=== PATIENT | female | born 1985 | race Caucasian/White ===

== ENCOUNTER 2020-01-29 09:03 | Outpatient (CLI) | payer OTHER, SELFPAY ==
--- NOTE | ~2020-01-29 | MM_ITS ---
EXAMINATION: MM screening dre BI w saulo HISTORY: Screening TECHNIQUE: Craniocaudal and mediolateral oblique 3-D tomosynthesis images were obtained and synthetic 2-D images were generated. CAD analysis was submitted and interpreted. COMPARISON: No prior mammogram is available for comparison at this institution. BREAST PARENCHYMAL COMPOSITION: There are scattered areas of fibroglandular density. FINDINGS: There is no evidence of suspicious mass, calcification, or architectural distortion to sugg est malignancy in either breast. There has been no suspicious interval change. IMPRESSION: 1. No mammographic evidence of malignancy. 2. Recommend routine screening mammography in one year. BI-RADS Category 1: Negative Reviewed, dictated and finalized at location A.
== END 2020-01-29 09:04 | disposition home or self-care (01) ==
PROVIDERS: PCP Obstetrics & Gynecology; Visit Provider Obstetrics & Gynecology
DX: Z12.31 Encounter for screening mammogram for malignant neoplasm of breast (principal)
CPT/HCPCS: 77063; 77067

== ENCOUNTER → 2020-05-07 13:43 | Outpatient (CLI) | payer OTHER, SELFPAY ==
--- NOTE | ~2020-05-07 | XR_ITS ---
EXAMINATION: XR ankle LT min 3V DATE: 05/07/2020 14:14 INDICATION: Left ankle injury. TECHNIQUE: 4 views of left ankle were obtained. COMPARISON: None. FINDINGS: Bone alignment is normal. No fracture. There is mild osteoarthritis of intermediate navicul ocuneiform joint. IMPRESSION: 1. No fracture. Reviewed, dictated and finalized at location B. ENT SERVICE ASSOCIATE IMPRESSION: 1. No fracture.
--- NOTE | ~2020-05-07 | XR_ITS ---
EXAMINATION: XR foot LT min 3V DATE: 05/07/2020 14:14 INDICATION: Left foot injury. TECHNIQUE: 4 views of left foot were obtained. COMPARISON: None. FINDINGS: Bone alignment is normal. No fracture. There is mild osteoarthritis of first metatarsophala ngeal joint and some of the interphalangeal joints and midfoot joints. IMPRESSION: 1. Mild polyarticular osteoarthritis. Reviewed, dictated and finalized at location B. OLOGY LABORATORY DIRECTOR
== END ==
PROVIDERS: Visit Provider Family Medicine
DX: S99.912A Unspecified injury of left ankle, initial encounter (principal); M19.072 Primary osteoarthritis, left ankle and foot
CPT/HCPCS: 73610; 73630

== ENCOUNTER 2021-01-04 12:40 | Emergency (ER) | payer OTHER, SELFPAY ==
[2021-01-04] VITALS (12 sets, daily range): BP systolic 108–145; BP diastolic 70–96; PULSE 65–77; RESP 9–19; TEMP 36.8; O2SAT 97–100
--- NOTE | ~2021-01-04 | XR_ITS ---
EXAMINATION: XR chest 2V EXAM DATE: 01/04/2021 13:13 INDICATION: Left-sided chest pain, bilateral arm heaviness. TECHNIQUE: Frontal and lateral projections of the chest obtained and reviewed. There is no prior asael dy for comparison. FINDINGS: The lungs are clear. There are no pleural effusions. The cardiomediastinal silhouette is within normal limits. There is no pneumothorax suspected. The bones and soft tissues are unremarkab le. IMPRESSION: Normal chest x-ray exam. Reviewed, dictated and finalized at location B. IMPRESSION: Normal chest x-ray exam.
--- NOTE | 2021-01-04 12:42 | ECG_ITS ---
Measurements Intervals [place] Rate: 73 P: 55 HI: 124 QRS: 52 QRSD: 81 T: 32 QT: 386 QTc: 426 Interpretive Statements SINUS RHYTHM POSSIBLE LEFT ATRIAL ENLARGEMENT BASELINE ARTIFACT- I, II, III, AVR, AVL BORDERLINE ECG Electronically Signed On 01-04-2021 12:52:32 CDT by Brien Devi D.O.
[2021-01-04 12:57] LABS: Basophils Absolute Auto 0.1 K/mm3 (0.0-0.1); Basophils Percent Auto 0.6 % (0.2-1.2); Eosinophils Absolute Auto 0.2 K/mm3 (0-0.3); Eosinophils Percent Auto 2.6 % (0-4.4); Hematocrit 37.4 % (37.0-47.0); Hemoglobin 12.4 g/dL (12.0-15.0); Immature Granulocyte Absolute 0.03 K/mm3 (0.00-0.031); Immature Granulocyte Percent A 0.4 % (0-0.5); Lymphocytes Absolute Auto 2.26 K/mm3 (0.9-3.2); Lymphocytes Percent Auto 28.9 % (18.3-44.2); Mean Corpuscular HGB Conc 33.2 g/dl (32-36); Mean Corpuscular Hemoglobin 29.7 pg (26-34); Mean Corpuscular Volume 89.5 fl (80-100); Mean Platelet Volume 10.5 fl (7.4-10.4); Monocytes Absolute Auto 0.6 K/mm3 (0.1-0.6); Monocytes Percent Auto 7.4 % (2.6-8.5); Neutrophils Absolute Auto 4.7 K/mm3 (1.3-6.7); Neutrophils Percent Auto 60.1 % (45.5-73.1); Platelet Count Result 270 k/mm3 (150-375); Red Blood Count 4.18 M/mm3 (4.2-5.4); Red Cell Distribution Width 12.8 % (11.5-14.5); White Blood Count 7.8 K/mm3 (4.5-10.0)
[2021-01-04 13:07] LABS: Partial Thromboplastin Time 22.5 SECONDS (22.3-36.8); Prothrombin Time 12.9 Seconds (11.1-14.7)
[2021-01-04 13:30] LABS: Anion Gap 8 mmol/L (8-16); Blood Urea Nitrogen 12 mg/dL (7-17); Calcium 8.7 mg/dL (8.4-10.2); Carbon Dioxide 24 mmol/L (22-30); Chloride 107 mmol/L (98-107); Estimated CRCL calculation 114 ml/min; Estimated Glomerular Filt Rate > 60; Glucose 95 mg/dL (65-110); Potassium 3.8 mmol/L (3.4-5.0); Sodium 139 mmol/L (137-145)
[2021-01-04 13:42] LABS: Troponin I < 0.012 ng/mL (0.000-0.034)
[2021-01-04 15:48] LABS: Troponin I < 0.012 ng/mL (0.000-0.034)
--- NOTE | 2021-01-04 16:27 | ED.GENADULT ---
HPI - General Adult General Chief complaint: Chest Pain Stated complaint: CP/sob/ Arms heavy Time Seen by Provider: 01/04/21 13:48 History of Present Illness HPI narrative: Patient is a 35-year-old female who presents ER with chest discomfort. Ongoing for the last couple weeks. There is pressure in the center of her chest and she will have to do breathing exercises to calm down. Occasionally she will take Xanax for it and will subside. Patient intermittently takes her BuSpar. No increase in stress recently. No known trauma. Denies exertional chest discomfort. Symptoms are occurring during her work call today and she felt she should get checked out. She also felt like today her arms were heavy as before her legs which is not typical of her anxiety. Related Data Home Medications Medication Instructions Recorded Confirmed alprazolam 01/04/21 etonogestrel-ethinyl estradiol vag ring VAGINAL 01/04/21 [NuvaRing] valacyclovir 01/04/21 zolpidem PO 01/04/21 Allergies Allergy/AdvReac Type Severity Reaction Status Date / Time naltrexone Allergy Unknown Unknown Verified 01/04/21 15:10 Review of Systems Review of Systems: All systems reviewed & are unremarkable except as noted in HPI and below Constitutional: Constitutional: Denies chills, Denies fever(s) and Denies weakness ENT: Denies nasal congestion and Denies sore throat Cardiovascular: Cardiovascular: Reports chest pain, Denies rapid heart rate and Denies radiating jaw, neck or arm pain Respiratory: Respiratory: Denies cough and Reports dyspnea Gastrointestinal: Gastrointestinal: Denies abdominal pain, Denies nausea and Denies vomiting Psychiatric: Psychiatric: Reports anxiety and Denies depression PMFSH Past Medical History Medical History (Updated 01/04/21 @ 16:34 by Mundo Hassan MD) Anxiety Surgical History Surgical History (Updated 01/04/21 @ 16:31 by Mundo Hassan MD) History of cholecystectomy History of gastric bypass Family History Family History (Updated 12/12/13 @ 07:13 by DOCTOR UNKNOWN) Mother Hypertension Other Diabetes mellitus Social History Social History Smoking status: Never smoker Alcohol intake: never Exam Narrative: GENERAL: Well-appearing, well-nourished, and in no acute distress. HEAD: Normocephalic, atraumatic. EYES: PERRL and EOMI. CHEST: Clear to auscultation. No respiratory distress. HEART: Regular rate and rhythm. Normal peripheral pulses. ABDOMEN: Soft, nontender, nondistended. EXTREMITIES: Normal range of motion. No edema. SKIN: Warm, dry, no rash. NEURO: Alert and oriented x3. PSYCH: Normal mood and affect. Course Course Emergency Course: Troponins negative x2. TSH pending. Patient will be discharged home in good follow-up with PCP. Vital Signs Vital signs: Vital Signs Temperature 98.3 F 01/04/21 12:47 Pulse Rate 77 01/04/21 12:47 Respiratory Rate 16 01/04/21 12:47 Blood Pressure 129/74 01/04/21 12:47 Pulse Oximetry 98 01/04/21 12:47 Temperature 98.3 F 01/04/21 12:47 Pulse Rate 70 01/04/21 16:32 Respiratory Rate 11 L 01/04/21 16:32 Blood Pressure 108/93 H 01/04/21 16:32 Pulse Oximetry 100 01/04/21 16:32 Medical Decision Making Vital Signs Vital Signs: Vital Signs Temperature 98.3 F 01/04/21 12:47 Pulse Rate 77 01/04/21 12:47 Respiratory Rate 16 01/04/21 12:47 Blood Pressure 129/74 01/04/21 12:47 Pulse Oximetry 98 01/04/21 12:47 Temperature 98.3 F 01/04/21 12:47 Pulse Rate 70 01/04/21 16:32 Respiratory Rate 11 L 01/04/21 16:32 Blood Pressure 108/93 H 01/04/21 16:32 Pulse Oximetry 100 01/04/21 16:32 Lab Data Result diagrams: 01/04/21 12:47 01/04/21 12:46 Labs: Lab Results 01/04/21 01/04/21 01/04/21 Range/Units 12:46 12:46 12:47 WBC 7.8 (4.5-10.0) K/mm3 RBC 4.18 L (4.2-5.4) M/mm3 Hgb 12.4 (12.0-15.0) g/dL Hct 37.4 (37.0
== END 2021-01-04 17:20 | disposition home or self-care (01) ==
PROVIDERS: Emergency Medicine; Emergency Provider Emergency Medicine; PCP Family Medicine
DX: F41.9 Anxiety disorder, unspecified (principal); Z98.84 Bariatric surgery status; R94.31 Abnormal electrocardiogram [ECG] [EKG]
CPT/HCPCS: 36415; 71046; 80048; 84443; 84484; 85025; 85610; 85730; 93005; 99284

== ENCOUNTER 2021-02-02 14:46 | Outpatient (CLI) | payer OTHER, SELFPAY ==
--- NOTE | ~2021-02-02 | MM_ITS ---
EXAMINATION: MM screening dre BI w saulo HISTORY: Screening mammogram TECHNIQUE: Craniocaudal and mediolateral oblique 3-D tomosynthesis images were obtained and synthetic 2-D images were generated. CAD analysis was submitted and interpreted. COMPARISON: 01/29/2020 bilateral digital screening mammogram BREAST PARENCHYMAL COMPOSITION: There are scattered areas of fibroglandular density. FINDINGS: There is no evidence of suspicious mass, calcification, or architectural distortion to sugg est malignancy in either breast. There has been no suspicious interval change. IMPRESSION: 1. No mammographic evidence of malignancy. 2. Recommend routine screening mammography in one year. BI-RADS Category 1: Negative Reviewed, dictated and finalized at location A.
== END 2021-02-02 14:47 | disposition home or self-care (01) ==
LOC: ANHIMG 14:48
PROVIDERS: PCP Family Medicine; Visit Provider Obstetrics & Gynecology
DX: Z12.31 Encounter for screening mammogram for malignant neoplasm of breast (principal)
CPT/HCPCS: 77063; 77067

== ENCOUNTER 2024-05-16 09:22 | Emergency (ER) | payer OTHER, SELFPAY ==
--- NOTE | 2024-05-16 09:26 | ED_ITS ---
HPI - Headache General Stated Complaint: ROSEN w/vision issues right side Time Seen by Provider: 05/16/24 09:23 Source: patient Mode of arrival: ambulatory Limitations: no limitations History of Present Illness HPI Narrative: Patient is a 38-year-old female who presents with right headache radiating down neck since Monday evening. Patient states symptoms are worse at night. Peak symptoms last night causing her to vomit. Patient has tried Tylenol, ibuprofen and did start Sudafed yesterday. Reports symptoms improved slightly but have never completely gone away. Patient has no history of migraines. Patient re ports vision changes only in the right eye where she has black spots and blurred vision that come and go. Denies any numbness, tingling or weakness to extremities or 1 side of the body. States she has increased fluid intake thinking was just dehydration. Patient has not changed caffeine intake. Patient is currently on end of her menstrual cycle. No change in diet, exercise, stress or sleep Related Data Home Medications ?Medication ?Instructions ?Recorded ?Confirmed ?Last Taken ?Type alprazolam 0.5 mg tablet 01/04/21 Unknown History etonogestrel 0.12 mg-ethinyl vag ring vaginal 01/04/21 Unknown History estradiol 0.015 mg/24 hr vaginal ring (NuvaRing) valacyclovir 500 mg tablet 01/04/21 Unknown History zolpidem 12.5 mg tablet,extended PO 01/04/21 Unknown History release,multiphase Allergies Allergy/AdvReac Type Severity Reaction Status Date / Time naltrexone Allergy Unknown Unknown Verified 05/16/24 09:33 Review of Systems Review of Systems: All systems reviewed & are unremarkable except as noted in HPI and below Constitutional: Constitutional: Denies body ache(s), Denies chills, Denies fatigue, Denies fever(s), Reports headache(s), Denies malaise and Denies weakness Eyes: Eyes: Denies blurry vision, Denies irritation and Reports loss of vision ENT: Denies otalgia, Denies headache(s), Denies nasal discharge, Denies sinus pain and Denies sore throat Cardiovascular: Cardiovascular: Denies chest pain, Denies irregular heart rhythm and Denies dyspnea Respiratory: Respiratory: Denies dyspnea Gastrointestinal: Gastrointestinal: Denies abdominal pain, Denies melena, Denies hematochezia, Denies diarrhea, Denies nausea and Denies vomiting Musculoskeletal: Musculoskeletal: Denies back pain, Denies myalgias and Denies arthralgias Integumentary/Breasts: Skin/Breast: Denies pruritus and Denies rash Neurologic: Reports headache(s), Reports loss of vision and Denies weakness Psychiatric: Psychiatric: Reports no additional psychiatric complaints Endocrine: Endocrine: Denies fatigue PMFSH Past Medical History Medical History Anxiety Surgical History Surgical History History of gastric bypass History of cholecystectomy Family History Family History Mother Hypertension Other Diabetes mellitus Social History Social History Smoking status: Never smoker Alcohol intake: never Comments At time of signature, agree with nursing past medical, surgical, social and family history. There is no relevant family history pertinent to the presenting complaint. Exam Const: General: cooperative, healthy appearing, comfortable, no acute distress and well nourished Nutritional Appearance: well nourished Orientation/consciousness: patient oriented x3 Limitations: no limitations HENMT: Head: normal to inspection, normocephalic and atraumatic Ears: hearing grossly normal bilaterally and external ears normal Face/Nose/Sinus: Normal external nose present, normal facial exam and face symmetric Face and sinus: normal facial exam and face symmetric Mouth: Yes lip normal Eyes: General: appearance normal, both eyes and all related structures Alignment and Position: alignment normal and position normal Periorbital: periorbital findings normal Eyelids: eyelids normal Pupils: Equal, round and reactive pupils present EOM: EOMs intact bilaterally Neck: Neck: normal visual inspection, full ROM and supple Chest: Chest palpation & inspection: normal inspection of the chest Resp: Effort & Inspection: normal respiratory effort and able to speak in complete sentences Auscultation: clear to auscultation bilaterally Cardio: Rate: regular rate Rhythm: regular rhythm Heart sounds: S1 normal heart sound present and S2 normal heart sound present GI: Inspection: normal to inspection Skin: General skin exam: normal color and no rashes or lesions noted Neuro: General: patient oriented x3 and moves all extremities Cranial nerves: Yes CN's II-XII intact bilaterally and Yes Equal, round and reactive pupils present Cognition (Neuro): normal cognition Speech: normal speech Gait exam (Neuro): Normal gait present Motor exam (neuro): 5/5 motor strength present throughout, Normal motor muscle tone present throughout and Motor abnormalities not present Sensory Exam: normal sensation Extrem: General: normal to inspection, full ROM and no edema Psych: Appearance: grossly normal and well kempt Mental Status: mental status grossly normal Speech and movement: Normal speech and movement present Affect: normal affect Attitude: cooperative Thought process: Normal thought process present Course Course Emergency Course: Patient being transferred to [facility] for further workup and evaluation. Patient needing further imaging and labs to rule out intracranial abnormality versus migraine. Portions of this record may have been created with voice recognition software Level of Care: Express Care Visit Vital Signs Vital signs: Reviewed Transfer Transfered to: [facility] Transportation: Other (Private auto) Transfer rationale: Headache to right side of head with vision changes to right eye Accepting physician: Krissy CORDERO MDM - Headache MDM Narrative Medical decision making narrative: Patient being transferred to [facility] for further workup and evaluation. Patient needing further imaging and labs to rule out intracranial abnormality versus migraine. Differential Diagnosis Differential diagnosis: Likely migraine, tension headache, subarachnoid hemorrhage, headache and sinusitis Medical Records Attestation: I reviewed the patient's medical records. Discharge Plan Discharge Clinical Impression: Right-sided headache, Changes in vision Patient Disposition: Acute Care Hospital Condition: Stable Patient Language: Iranian Prescriptions: No Action alprazolam 0.5 mg tablet valacyclovir 500 mg tablet etonogestrel-ethinyl estradiol [NuvaRing] 0.12-0.015 mg/24 hr ring VAGINAL zolpidem 12.5 mg tablet,ext release multiphase PO Follow-up/Referrals: PHYSICIAN,DOOR TO DOOR SALESPERSON [Primary Care Provider] - Time of Disposition: 10:02
[2024-05-16 09:35] VITALS: BP 121/80; PULSE 72; RESP 14; TEMP 36.4; O2SAT 100
== END 2024-05-16 09:56 | disposition short-term general hospital (02) ==
PROVIDERS: Emergency Provider Nurse Practitioner Family
DX: R51.9 Headache, unspecified (principal); H53.8 Other visual disturbances
CPT/HCPCS: 99213; G0463

== ENCOUNTER 2024-05-16 10:15 | Emergency (ER) | payer OTHER, SELFPAY ==
--- NOTE | ~2024-05-16 | CT_ITS ---
EXAMINATION: CT brain wo con DATE: 05/16/2024 11:31 INDICATION: Headache. TECHNIQUE: Computed tomography (CT) of the head was performed without intravenous contrast. The mA wa s adjusted according to patient size. Iterative reconstruction technique was employed. The dose-lengt h product was 605.33 mGy-cm. COMPARISON: Brain MRI 03/03/2014 FINDINGS: There is no intracranial hemorrhage, acute infarction, or abnormal intracranial mass lesion . The ventricles are normal in size. The paranasal sinuses are clear. The orbits are normal. The mast oid air cells are normal. IMPRESSION: 1. Normal brain. Reviewed, dictated and finalized at location A. FIC DIVISION COMMANDING OFFICER IMPRESSION: 1. Normal brain.
[2024-05-16 10:21] VITALS: BP 126/74; PULSE 78; RESP 17; TEMP 36.5; O2SAT 100
--- OUTSIDE RECORDS SUMMARY | 2024-05-16 11:09 | XMS_ITS | Clinical Summary ---
Author Organization [facility] [place] Address [address] [place] [address] Care Team Providers Care Enforcement Manager Name Role Phone Park Montalvo MD Primary Care Provider [phone] Allergies No known active allergies Medications NUVARING 0.12-0.015 mg/24 hr Ring 7 Active valACYclovir (VALTREX) 500 mg tablet 9 Active triamcinolone acetonide (KENALOG) 0.1 % CreamIndications: Dermatitis due to plants, including poison angela, sumac, and oak Apply to affected area 2 times daily. 30 Gram 2 Active ALPRAZolam (Xanax) 0.25 mg tabletIndications :Situational anxiety Take 1 Tablet (0.25 mg) by mouth 1 time daily as needed for Anxiety (Use sparingly). 30 Tablet 2 Active albuterol sulfate HFA 90 mcg/actuation aerosol inhalerIndication s:Exercise induced bronchospasm 2 puffs 30 min prior to exercise 6.7 Gram 2 4 Active busPIRone (BUSPAR) 5 mg tablet Take 1 Tablet (5 mg) by mouth daily. 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 Anxiety state 11/30/2018 Psychophysiological insomnia 11/30/2018 Idiopathic urticaria 12/05/2017 Resolved Problems Problem Noted Date Diagnosed Date Resolved Date Dietary iron deficiency without anemia 12/04/2018 12/15/2021 Low TSH level 11/30/2018 12/15/2021 Morbid obesity 09/01/2014 07/29/2020 Encounters Date Type Department Care Team Description 05/09/2024 External Device Data [facility] ABSTRACTION Provider, Abstract from Last 3 Months Immunizations Immunization Administration Dates Next Due (ADACEL/BOOSTRIX)(10 YR UP) TDAP VACCINE, 0.5ML, IM 04/17/2015 (PFIZER)(12 YR UP) COVID-19 VACCINE - EMERGENCY USE AUTHORIZATION, MRNA, [id number](PF) 30 MCG/0.3 ML IM SUSP 02/14/2021,08/11/2020 Family History Medical History Relation Name Comments No Known Problems Daughter 1 No Known Problems Daughter 2 Skin Cancer Father Cataract Maternal Grandfather Diabetes Maternal Grandfather Diabetes Maternal Grandmother Heart Failure Maternal Grandmother Kidney Disease Maternal Grandmother Uterine Cancer Maternal Grandmother Depression Mother Thyroid Disease Mother Other Paternal Grandfather farmers lung Other Paternal Grandmother lung tr ansplant No Known Problems Sister 1 No Known Problems Sister 2 No Known Problems Sister 3 No Known Problems Sister 4 Relation Name Status Comments Daughter 1 Alive Daughter 2 Alive Father Alive Maternal Grandfather Maternal Grandmother Alive Mother Alive Paternal Grandfather Paternal Grandmother Alive Sister 1 Alive Sister 2 Alive Sister 3 Alive Sister 4 Alive Social History Tobacco Use Types Packs/Day Years Used Date Smoking Tobacco: Never Smokeless Tobacco: Never Tobacco Cessation:Counseling Given: No Alcohol Use Standard Drinks/Week Comments Yes 0 (1 standard drink = 0.6 oz pure alcohol) 8 drinks/week, sometimes more if she drinks on the weekend Comments No Sex and Gender Information Value Date Recorded Sex Assigned at Not on file 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 Gender Identity Not on file Sexual Orientation Not on file Last Filed Vital Signs Vital Sign Reading Time Taken Comments Blood Pressure 114/82 12/08/2023 1:02 PM CDT Pulse 71 12/08/2023 1:02 PM CDT Temperature 36.9 ??C (98.5 ??F) 12/08/2023 1:02 PM CD T Respiratory Rate 18 12/08/2023 1:02 PM CDT Oxygen Saturation 98% 12/08/2023 1:02 PM CDT Inhaled Oxygen Concentration - - Weight 120.7 kg (266 lb) 12/08/2023 1:02 PM CDT Height 175.3 cm (5' 9 ) 12/08/2023 1:02 PM CDT Body Mass Index 39.28 12/08/2023 1:02 PM CDT Plan of Treatment Health Maintenance Due Date Last Done Comments Pre-Diabetes and Diabetes Screening 1984 PNEUMOCOCCAL VACCINE 0-64 YEARS (1 of 2 - PCV) 1990 HEPATITIS B VACCINES (1 of 3 - 19+ 3-dose series) 06/18/2003 INFLUENZA VACCINE (#1) 2023 , 01/26/2021 COVID-19 Vaccine ( - 2023-2 5 season) 2023 02/14/2021, 08/11/2020 Preventative Visit- Commercial 04/17/2024 01/05/2023 CERVICAL CANCER SCREENING 06/15/20242021 (Previously completed), 12/16/2017 (Previously completed), 01/15/2017 (Previously completed) DTAP/TDAP/TD VACCINES (2 - T d or Tdap) 04/17/2025 04/17/2015 HPV VACCINES Aged Out No longer eligi ble based on patient's age to complete this topic Insurance * Guarantor: [employer] (C) Account Type Relation to Patient Date of Phone Billing Address Corporate Employer ATTN: JANELLE PAUL [address] [address] [employer]GI[employer] OPEN ACCESS * Guarantor: [employer] Account Type Relation to Patient Date of Phone Billing Address Corporate Employer ATTN: JANELLE PAUL [address] [address] Care Teams Enforcement Manager Relationship Specialty Start Date End Date Park Montalvo MD [address] [place] [id number] PCP - General Internal Medicine 12/08/23
--- OUTSIDE RECORDS SUMMARY | 2024-05-16 11:09 | XMS_ITS | Clinical Summary ---
Author Organization [facility] Address [address] [place] [address] Phone Care Team Providers Care Business Center Manager Name Role Phone Citlali Ang APRN, SED [employer]CHOOL TEACHER Primary Care Provide r Chidi Andrew MD Unavailable Allergies No known active allergies Medications Etonogestrel-Eth inyl Estradiol 0.12-0.015 MG/24HR RING 03/07/2017 Active busPIRone (BUSPAR) 5 MG Tablet Take 10 mg by mouth. 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 Family History Medical History Relation Name Comments No Known Problems Brother Diabetes Maternal Grandfather Diabetes Maternal Grandmother Diabetes Paternal Grandfather Diabetes Paternal Grandmother No Known Problems Sister Relation Name Status Comments Brother Father Alive Maternal Grandfather Maternal Grandmother Alive Mother Alive Paternal Grandfather Paternal Grandmother Sister Social History Tobacco Use Types Packs/Day Years Used Date Smoking Tobacco: Never Smokeless Tobacco: Never Tobacco Cessation:Counseling Given: Not Answered Alcohol Use Standard Drinks/Week Comments Yes 12 (1 standard drink = 0.6 oz pu re alcohol) ocassional Comments No Sex and Gender Information Value Date Recorded Sex Assigned at Not on file Legal Sex Female 10:41 PM CDT Gender Identity Not on file Sexual Orientation Not on file Last Filed Vital Signs Vital Sign Reading Time Taken Comments Blood Pressure 139/82 01/23/2024 9:10 AM CDT Pulse 72 01/23/2024 9:10 AM CDT Temperature 36.7 ??C (98 ??F) 01/23/2024 9:10 AM CDT Respiratory Rate 16 01/23/2024 9:10 AM CDT Oxygen Saturation 99% 01/23/2024 9:10 AM CDT Inhaled Oxygen Concentration - - Weight 121.6 kg (268 lb) 12/27/2023 1:15 PM CDT Height 177.8 cm (5' 10 ) 12/27/2023 1:15 PM CDT Body Mass Index 38.45 12/27/2023 1:15 PM CDT Plan of Treatment Upcoming Encounters Date Type Department Care Team (Late st Contact Info) Description 01/03/2025 8:40 AM CDT [facility] [address] [place] [address] Chidi Andrew MD [address] [place] [address] Discharge Disposition: Discharged to home or Selfcare Health Maintenance Due Date Last Done Comments Hepatitis C Virus (HCV) Screening 1984 Hepatitis B Immunization (1 of 3 - 19+ 3-dose series) 06/18/2003 Pap Smear 2005 Cervical Cancer Screening (CCS) 2014 HPV/Cotest 2014 Influenza Immunization (#1) 2023 1005/2022, 02/14/2022 SARS-COV-2 Immunization ( season) 2023 02/14/2021, 08/11/2020 Respiratory Syncytial Virus (RSV) Immunization (Adult) (1 - 1-dose 75+ series) 06/18/2059 DTaP/Tdap/Td Immunization Discontinued 04/17/2015 TdaP Immunization Completed 04/17/2015 Meningococcal Immunization (ACWY) Aged Out No longer eligible based on patient's age to complete this topic Pneumococcal Immunization Combined Aged Out No longer eligible based on patient's age to complete this topic Rotavirus Immunization Aged Out No lo nger eligible based on patient's age to complete this topic Insurance [address] [place] [address] Care Teams Business Center Manager Relationship Specialty Start Date End Date Citlali Ang, CASH APPLICATION REPRESENTATIVE, [employer]ER PCP - General Advanced Practice Nurse 12/31/18 Chidi Andrew MD [address] [place] [address] Consulting Physician Medical Oncology 11/22/23
--- OUTSIDE RECORDS SUMMARY | 2024-05-16 11:09 | XMS_ITS | Clinical Summary ---
Author Organization [facility] Address [address] [facility] [place] [address] Care Team Providers Care Service Crew Leader Name Role Phone Bruna Lazaro RN Unavailable [phone] None, Physician Primary Care Provider Unavailabl e Source Comments [facility],non-owned Affiliates and Associated Physician Practices is amultiple site organization consisting of ambulatory clinics and hospital sitesin [place], [place], [place] and [place]. This disclosure is being madepursuant to the Care Everywhere program and may not contain all information available regarding this patient. Last updated 18.[facility] Allergies No known active allergies Medications * Be aware that medications may not be up to date on this document. Alwaysverify current medications with the patient. Medication Sig Dispensed Refills Start Date End Date Status norethindrone-ethiny l estradiol (CYCLAFEM 1/35) 1-35 MG-MCG tablet Take 1 (one) tablet by mouth once daily Active busPIRone (Buspar) 5 MG tablet Take 1 (one) tablet by mouth once daily 01/05/2023 Active sucralfate (Carafate) 1 GM/10ML suspension Take 10 mL by mouth 3 times daily 840 mL 02/09/2024 Active phentermine-topirama te 24hr (Qsymia) 3.75-23 MG capsuleIndications:M orbid obesity (HCC) Take 1 (one) capsule by mouth once daily 14 capsule 03/08/2024 Active phentermine-topirama te 24hr (Qsymia) 7.5-46 MG capsuleIndications:M orbid obesity (HCC) Take 1 (one) capsule by mouth once daily 30 capsule 03/11/2024 Active Active Problems Problem Noted Date Diagnosed Date Morbid obesity 09/01/2014 DJD (degenerative joint disease) 09/01/2014 Cholelithiasis 09/01/2014 Encounters Date Type Department Care Team Description 04/05/2024 12:15 PM SCHOOL SECRETARY Clinical Support [facility] Weight Management Services [address] [place] [address], [address] [place] [address] Morbid obesity (HCC) 03/11/2024 Refill [facility] Weight Management Services [address] [place] [address], [address] [place] [address] Yoel Juarez MD MEDICATION REFILL 03/08/2024 1:40 PM SCHOOL SECRETARY Office Visit [facility] Weight Management Services [address] [place] [address], [address] [place] [address] Yoel Juarez MD Morbid obesity (HCC) (Primary Dx) 03/01/2024 9:45 AM SCHOOL SECRETARY Video Visit [facility] Weight Management Services [id number] [place] [address], [address] [place] [address] Morbid obesity (HCC) 02/23/2024 9:00 AM SCHOOL SECRETARY Video Visit [facility] Weight Management Services [address] [facility], [address] [place] [address] Bariatric surgery status from Last 3 Months Social History Tobacco Use Types Packs/Day Years Used Date Smoking Tobacco: Never Alcohol Use Standard Drinks/Week Comments Yes 0 (1 standard drink = 0.6 oz pur e alcohol) occasional Sex and Gender Information Value Date Recorded Sex Assigned at Female 01/15/2024 3:17 PM CDT Gender Identity Not on file Sexual Orientation Not on file Last Filed Vital Signs Vital Sign Reading Time Taken Comments Blood Pressure 130/82 03/08/2024 1:43 PM SCHOOL SECRETARY Pulse 78 03/08/2024 1:43 PM SCHOOL SECRETARY Temperature 36.1 ??C (96.9 ??F) 03/08/2024 1:43 PM CS T Respiratory Rate 21 02/09/2024 9:25 AM CDT Oxygen Saturation 98% 03/08/2024 1:43 PM SCHOOL SECRETARY Inhaled Oxygen Concentration - - Weight 121.9 kg (268 lb 12.8 oz) 2023 12:31 PM SCHOOL SECRETARY Height 171.5 cm (5' 7.5 ) 04/05/2024 12 :31 PM SCHOOL SECRETARY Body Mass Index 41.48 04/05/2024 12:31 PM SCHOOL SECRETARY Plan of Treatment Upcoming Encounters Date Type Department Care Team (Late st Contact Info) Description 05/31/2024 2:40 PM SCHOOL SECRETARY Office Visit [facility] Weight Management Services [address] [facility], [address] [place] [address] [place] [address] [facility] [address] [place] [address] Health Maintenance Due Date Last Done Comments PAP SMEAR 1985 HIV SCREENING 06/18/1999 HEPATITIS C SCREENING 06/13/2002 DTAP/TDAP/TD VACCINES (1 - Tdap) 06/18/2003 HEPATITIS B VACCINE (1 of 3 - 19+ 3-dose series) 06/18/2003 COVID-19 VACCINE ( - 2023-2 5 season) 2023 02/14/2021, 08/11/2020 INFLUENZA VACCINE (#1) 2023 02/14/2022 DEPRESSION SCREENING 04/17/2024 ZOSTER VACCINE (1 of 2) 2034 HIB VACCINE Aged Out No longer eligi ble based on patient's age to complete this topic HPV VACCINE Aged Out No longer eligi ble based on patient's age to complete this topic MENINGOCOCCAL (Group B) VACCINE Aged Out No longer eligible b ased on patient's age to complete this topic MENINGOCOCCAL VACCINE Aged Out No risa ilda eligible based on patient's age to complete this topic PNEUMOCOCCAL VACCINE Aged Out No long er eligible based on patient's age to complete this topic Advance Directives * Full Code (Latest Code Status on File) Date Activated Date Inactivated Comments 02/24/2015 8:31 PM 02/26/2015 12:25 PM Care Teams Service Crew Leader Relationship Specialty Start Date End Date None, Physician [address] [place] [address] PCP - General 02/09/24 Bruna Lazaro, RN Planning Technician 02/24/15
--- OUTSIDE RECORDS SUMMARY | 2024-05-16 11:09 | XMS_ITS | Referral Summary ---
Author Organization [facility] Address [address] [place] [address] Care Team Providers Care Bilingual Sales Consultant Name Role Phone Bruna Lazaro RN Unavailable [phone] None, Physician Primary Care Provider Unavailabl e Source Comments [facility] Affiliates and Associated Physician Practices is amultiple site organization consisting of ambulatory clinics and hospital sitesin [place], [place], [place] and [place]. This disclosure is being madepursuant to the Care Everywhere program and may not contain all information available regarding this patient. Last updated 18.[facility] Encounters Date Type Department Care Team Description 04/05/2024 12:15 PM TOXICOLOGY SUPERVISOR Clinical Support [facility] [address] Weight Management Services [address] [place] [address], [address] [place] [address] Morbid obesity (HCC) 03/11/2024 Refill [facility] [address] Weight Management Services [address] [place] [address], [address] [address] Yoel Juarez MD MEDICATION REFILL 03/08/2024 1:40 PM TOXICOLOGY SUPERVISOR Office Visit [facility] [address] Weight Management Services [address] [place] [address], [facility] [address] [place] [address] Yoel Juarez MD Morbid obesity (HCC) (Primary Dx) 03/01/2024 9:45 AM TOXICOLOGY SUPERVISOR Video Visit [facility] [address] Weight Management Services [address] [place] [address], [address] [address] Morbid obesity (HCC) 02/23/2024 9:00 AM TOXICOLOGY SUPERVISOR Video Visit [facility] Weight Management Services [address], [address] [place] [address] Bariatric surgery status from Last 3 Months Allergies No known active allergies Medications * Be aware that medications may not be up to date on this document. Alwaysverify current medications with the patient. Medication Sig Dispensed Refills Start Date End Date Status norethindrone-ethiny l estradiol (CYCLAFEM ) 1-35 MG-MCG tablet Take 1 (one) tablet [...] DJD (degenerative joint disease) 09/01/2014 Cholelithiasis 09/01/2014 Social History Tobacco Use Types Packs/Day Years [...] Comments Blood Pressure 130/82 03/08/2024 1:43 PM TOXICOLOGY SUPERVISOR Pulse 78 03/08/2024 1:43 PM TOXICOLOGY SUPERVISOR Temperature 36.1 ??C (96.9 ??F) 03/08/2024 1:43 PM CS T Respiratory Rate 21 02/09/2024 9:2 5 AM CDT Oxygen Saturation 98% 03/08/2024 1:43 PM TOXICOLOGY SUPERVISOR Inhaled Oxygen Concentration - - Weight 121.9 kg (268 lb 12.8 oz) 2023 12:31 PM TOXICOLOGY SUPERVISOR Height 171.5 cm (5' 7.5 ) 04/05/2024 12 :31 PM TOXICOLOGY SUPERVISOR Body Mass Index 41.48 04/05/2024 12:31 PM TOXICOLOGY SUPERVISOR Functional Status Functional Status Response Date of Assess ment Is person deaf or have serious hearing difficult y? No 02/24/2015 Is person blind or have serious difficulty seein g? No 02/24/2015 Does person have serious dif ficulty walking/climbing stairs? No 02/24/2015 Does person have difficulty dressing/bathing? No 02/24/2015 Does person have difficulty doing errands alone? No 02/24/2015 Cognitive Status Response Date of Assessm ent Does person have difficulty concentrating/remembering/making decisions? No 02/24/2015 Plan of Treatment Upcoming Encounters Date Type Department Care Team (Late st Contact Info) Description 05/31/2024 2:40 PM TOXICOLOGY SUPERVISOR Office Visit [facility] Weight Management Services [address] [facility], [address] [place] [address] [place] [address] [facility] [address] [place] [address] Advance Directives * Full Code (Latest Code Status on File) Date Activated Date Inactivated Comments 02/24/2015 8:31 PM 02/26/2015 12:25 PM Care Teams Bilingual Sales Consultant Relationship Specialty Start Date End Date None, Physician [address] [place] [address] PCP - General 02/09/24 Bruna Lazaro, RADHA Pipe Fitter Maintenance 02/24/15
--- OUTSIDE RECORDS SUMMARY | 2024-05-16 11:09 | XMS_ITS | Clinical Summary ---
Author Organization [facility] [address] Address [address] [place] [id number] Care Team Providers Care Distiller Name Role Phone Merrill Moyer MD Unavailable [phone] Chidi Andrew MD Unavailable [phone] Allergies No known active allergies Medications albuterol HFA (PROVENTIL HFA,VENTOLIN HFA,PROAIR HFA) 90 mcg/actuation inhaler 2 puffs 30 min prior to exercise 12/07/2020 Active etonogestreL-et hinyl estradioL (NUVARING, ELURYNG) 0.12-0.015 mg/24 hr vaginal ring 03/07/2017 Active valACYclovir (VALTREX) 500 mg tablet 01/06/2019 Active cyanocobalamin (Vitamin B-12) 1,000 mcg sublingual tablet Take 1 tablet (1,000 mcg total) by mouth daily Active busPIRone (BUSPAR) 5 mg tabletIndicatio ns:Generalized Anxiety Disorder Take 1 tablet (5 mg total) by mouth daily as needed (anxiety) 90 tablet 3 01/05/2023 Active ALPRAZolam (XANAX) 0.25 mg tabletIndicatio ns:Panic attack Take 1 tablet (0.25 mg total) by mouth nightly as needed for anxiety 30 tablet 08/22/2023 Active Active Problems Problem Noted Date Diagnosed Date B12 deficiency 01/05/2019 Hyperthyroidism 01/05/2019 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 Anxiety state 11/30/2018 Psychophysiological insomnia 11/30/2018 Idiopathic urticaria 12/05/2017 DJD (degenerative joint disease) 09/01/2014 Morbid obesity 09/01/2014 Resolved Problems Problem Noted Date Diagnosed Date Resolved Date Cholelithiasis 09/01/2014 01/05/2023 Immunizations Name Administration Dates Next Due Influenza, Quadrivalent, Spl it, Preservative Free, Intramuscular 02/14/2022 Tdap 04/17/2015 Surgical History Surgery Date Site/Laterality Comments CHOLECYSTECTOMY N/A GASTRIC BYPASS N/A TONSILLECTOMY Bilateral Medical History Medical History Date Comments Anxiety Cholelithiasis 09/01/2014 Varicella Family History Medical History Relation Name Comments Melanoma Father Diabetes Maternal Grandfather Diabetes Maternal Grandmother Skin cancer Maternal Grandmother Uterine cancer Maternal Grandmother Atrial fibrillation Mother Degenerative Disk Disease Mother Skin cancer Mother Lung disease Paternal Grandfather adrian Diabetes Paternal Grandmother Skin cancer Paternal Grandmother No Known Problems Sister 1 No Known Problems Sister 2 No Known Problems Sister 3 No Known Problems Sister 4 Breast cancer Neg Hx Colon cancer Neg Hx Relation Name Status Comments Father Alive Maternal Grandfather Maternal Grandmother Mother Alive Paternal Grandfather Paternal Grandmother Sister 1 Alive Sister 2 Alive Sister 3 Alive Sister 4 Alive Social History Tobacco Use Types Packs/Day Years Used Date Smoking Tobacco: Never Smokeless Tobacco: Never Tobacco Cessation:Counseling Given: Not Answered PHQ-2 Answer Date Recorded PHQ-2 Total Score (If total score is 3 or more points, staff should administer the PHQ-9) 0 01/05/2023 Comments Unknown Sex and Gender Information Value Date Recorded Sex Assigned at Not on file Legal Sex Female 3:41 AM FISHER SEAL Gender Identity Not on file Sexual Orientation Not on file Occupation Industry Job Start Date Job End Date [employer] Not on file Not on file Not on file Obstetrics History Last Filed Vital Signs Vital Sign Reading Time Taken Comments Blood Pressure 113/76 01/05/2023 12:11 PM CDT Pulse 83 01/05/2023 12:11 PM CDT Temperature 36.7 ??C (98 ??F) 01/05/2023 12:11 PM CDT Respiratory Rate 14 03/15/2022 10:01 AM FISHER SEAL Oxygen Saturation 98% 01/05/2023 12:11 PM CDT Inhaled Oxygen Concentration - - Weight 119.7 kg (264 lb) 01/05/2023 12:11 PM CDT Height 174 cm (5' 8.5 ) 01/05/2023 12:11 PM CDT Body Mass Index 39.55 01/05/2023 12:11 PM CDT Plan of Treatment Health Maintenance Due Date Last Done Comments Hepatitis C Screening 1984 Hepatitis B Screening 2002 Covid-19 Vaccine (3 - 2023-2 5 season) 2023 02/14/2021, 08/11/2020 Influenza Vaccine (#1) 2023 02/14/2022 Depression Screening 01/06/2024 01/05/2023 Regular Well Visit/Exam 18-64 01/06/2024, 01/05/2023 DTaP/Tdap/Td Vaccine (2 - Td or Tdap) 04/17/2025 04/17/2015 Cervical Cancer Screening 04/17/2027 04/17/2022 HPV Vaccines Aged Out No longer eligi ble based on patient's age to complete this topic Pneumococcal vaccine <65 Aged Out No longer eligible based on patient's age to complete this topic Insurance EMPLOYEES [employer] EMPLOYEES [employer] Care Teams Distiller Relationship Specialty Start Date End Date Merrill Moyer MD [address] [address] Referring Physician Obstetrics and Gynecology 01/05/23 Chidi Andrew MD [address] [facility] [address] [place] [address] Referring Physician Hematology and Oncology 01/05/23
--- OUTSIDE RECORDS SUMMARY | 2024-05-16 11:09 | XMS_ITS | Patient Health Summary ---
Author Organization [facility] [employer] Address [address] [place] [address] Care Team Providers Care Junior Underwriter Name Role Phone Bruna Lazaro RN Unavailable [phone] None, Physician Primary Care Provider Unavailabl e Note from [facility],non-owned Affiliates and Associated Physician Practices is amultiple site organization consisting of ambulatory clinics and hospital sitesin [place], [place], [place] and [place]. This disclosure is being madepursuant to the Care Everywhere program and may not contain all information available regarding this patient. Last updated 18.[facility] [employer] Allergies No known active allergies Medications * Be aware that medications may not be up to date on this document. Alwaysverify current medications with the patient. * norethindrone-ethinyl estradiol (CYCLAFEM ) 1-35 MG-MCG tablet Take 1 (one) tablet by mouth once daily * busPIRone (Buspar) 5 MG tablet(Started 01/05/2023) Take 1 (one) tablet by mouth once daily * sucralfate (Carafate) 1 GM/10ML suspension(Started 02/09/2024) Take 10 mL by mouth 3 times daily * phentermine-topiramate 24hr (Qsymia) 3.75-23 MG capsule(Started 03/08/2024) Take 1 (one) capsule by mouth once daily * phentermine-topiramate 24hr (Qsymia) 7.5-46 MG capsule(Started 03/11/2024) Take 1 (one) capsule by mouth once daily Active Problems Problem Noted Date Diagnosed Date [...] Comments Blood Pressure 130/82 03/08/2024 1:43 PM JEWELRY [facility]KER Pulse 78 03/08/2024 1:43 PM JEWELRY [facility] Temperature 36.1 ??C (96.9 ??F) 03/08/2024 1:43 PM CS T Respiratory Rate 21 02/09/2024 9:25 AM CDT Oxygen Saturation 98% 03/08/2024 1:43 PM JEWELRY MAKER Inhaled Oxygen Concentration - - Weight 121.9 kg (268 lb 12.8 oz) 2023 12:31 PM JEWELRY MAKER Height 171.5 cm (5' 7.5 ) 04/05/2024 12 :31 PM JEWELRY MAKER Body Mass Index 41.48 04/05/2024 12:31 PM [facility]EWELRY [facility]K[employer] Procedures * HELICOBACTER PYLORI UREASE (STL)(Performed 02/09/2024) Performed for Diagnosis unknown * HCG URINE QUAL POCT NOTIFICATION(Performed 02/09/2024) Performed for Preop examination * HCG URINE QUALITATIVE - POCT (IP) INTERFACED(Performed 02/09/2024) * [place] ED EGD FLEX TRANSORAL DX(Performed 02/09/2024) * EGD(Performed 02/09/2024) Performed for Bariatric surgery status, Morbid obesity (HCC), Intestinal malabsorption, unspecifiedtype (HCC) * FL UGI SERIES(Performed 02/08/2024) Performed for Bariatric surgery status, Morbid obesity (HCC), Intestinal malabsorption, unspecifiedtype (HCC) * COPPER BLOOD(Performed 01/09/2024) Performed for Intestinal malabsorption, unspecified type (HCC) * ZINC BLOOD(Performed 01/09/2024) Performed for Intestinal malabsorption, unspecified type (HCC) * VITAMIN K1(Performed 01/09/2024) Performed for Intestinal malabsorption, unspecified type (HCC) * VITAMIN E(Performed 01/09/2024) Performed for Intestinal malabsorption, unspecified type (HCC) * VITAMIN D 25-HYDROXY(Performed 01/09/2024) Performed for Intestinal malabsorption, unspecified type (HCC) * PREALBUMIN(Performed 01/09/2024) Performed for Intestinal malabsorption, unspecified type (HCC) * VITAMIN A(Performed 01/09/2024) Performed for Intestinal malabsorption, unspecified type (HCC) * VITAMIN B1(Performed 01/09/2024) Performed for Intestinal malabsorption, unspecified type (HCC) * COMPREHENSIVE METABOLIC PANEL(Performed 01/09/2024) Performed for Intestinal malabsorption, unspecified type (HCC) * LAB RESULTS ORDER(Performed 03/26/2016) * GLUCOSE - POINT OF CARE(Performed 02/26/2015) * GLUCOSE - POINT OF CARE(Performed 02/26/2015) * BASIC METABOLIC PANEL (CALCIUM TOTAL)(Performed 02/26/2015) * CBC W AUTO DIFFERENTIAL(Performed 02/26/2015) * GLUCOSE - POINT OF CARE(Performed 02/25/2015) * GLUCOSE - POINT OF CARE(Performed 02/25/2015) * FL FLUORO UPPER GI TRACT + KUB(Performed 02/25/2015) Performed for H/O gastric bypass * VITAMIN D 25-HYDROXY(Performed 02/25/2015) * BASIC METABOLIC PANEL (CALCIUM TOTAL)(Performed 02/25/2015) * CBC W AUTO DIFFERENTIAL(Performed 02/25/2015) * LAPAROSCOPIC GASTRIC BYPASS(Performed 02/24/2015) Performed for Morbid obesity (HCC) * GLUCOSE - POINT OF CARE(Performed 02/24/2015) * HCG URINE QUALITATIVE - POINT OF CARE(Performed 02/24/2015) * POTASSIUM BLOOD(Performed 02/24/2015) * VITAMIN B12(Performed 02/05/2015) Performed for Preop examination * VITAMIN B1(Performed 02/05/2015) Performed for Preop examination * CBC W AUTO DIFFERENTIAL(Performed 02/05/2015) Performed for Preop examination * COMPREHENSIVE METABOLIC PANEL(Performed 02/05/2015) Performed for Preop examination * EKG 12-LEAD(Performed 02/05/2015) Performed for Preop examination * SLEEP STUDY(Performed 10/15/2014) * LUPUS ANTICOAGULANT PANEL(Performed 03/07/2014) Results * HELICOBACTER PYLORI UREASE (STL) (02/09/2024 9:07 AM CDT) Helicobacter pylori Urease Initial Negative Negative 02/10/2024 10:13 AM CDT [facility] Helicobacter pylori Urease Final Negative Negative 02/10/2024 10:13 AM CDT [facility] Microbiology GASTRIC ANTRAL BIOPSY SPECIMEN / Unknown 02/09/2024 9:07 AM CDT 02/09/2024 4:37 PM CDT Yoel Juarez MD LAB - MICROBIOLOGY O RDERABLES Performing Organization Address City/[facility]/ZIP Co de Phone Number [facility] [address] [place] [address] * HCG URINE QUAL POCT NOTIFICATION (02/09/2024 9:00 AM CDT) Comment Notification Label Only - See Separate Report 02/09/2024 9:00 AM CDT [facility] Urine URINE / Unknown 7:52 AM CDT Emi Harden DO LAB - URINALYSIS ORD ERABLES Performing Organization Address [facility] Co de Phone Number [facility] [address] [place] [address] * HCG URINE QUALITATIVE - POCT (IP) INTERFACED (02/09/2024 8:54 AM CDT) HCG Qual Urine Negative Negative 02/09/2024 9:00 AM CDT [facility] Urine URINE / Unknown 02/09/2024 8 :54 AM CDT 02/09/2024 9:00 AM CDT Yoel Juarez MD LAB - POINT OF CARE ORDERABLES Performing Organization Address [facility] Co de Phone Number [facility] [id number] [place] [address] * EGD (02/09/2024 8:08 AM CDT) Report Endoscopy POC _ Patient Name: Anabella Lopez ?Procedure Date: 02/09/2024 8:08 AM ? Date of : 1985 ? Admit Type: Outpatient Age: 38 ? Gender: Female Attending MD: Yoel Juarez MD, ?? _ Procedure: ? Upper GI endoscopy Indications: ? Heartburn, Assessment following Berenice-en-Y ? gastrojejunostomy Providers: ? Yoel Juarez MD (Doctor) Medicines: ? Propofol per Anesthesia Complications: ? No immediate complications. _ Estimated Blood Loss: ? Estimated blood loss: none. Procedure: ? Pre-Anesthesia Assessment: ? - Prior to the procedure, a History and Physical was ? performed, and patient medications and allergies were ? reviewed. The patient's tolerance of previous ? anesthesia was also reviewed. The risks and benefits ? of the procedure and the sedation options and risks ? were discussed with the patient. All questions were ? answered, and informed consent was obtained. Prior ? Anticoagulants: The patient has taken no anticoagulant ? or antiplatelet agents. ASA Grade Assessment: II - A ? patient with mild systemic disease. After reviewing ? the risks and benefits, the patient was deemed in ? satisfactory condition to undergo the procedure. ? After obtaining informed consent, the endoscope was ? passed under direct vision. Throughout the procedure, ? the patient's blood pressure, pulse, and oxygen ? saturations were monitored continuously. The Endoscope ? was introduced through the mouth, and advanced to the ? jejunum. The upper GI endoscopy was accomplished ? without difficulty. The patient tolerated the ? procedure well. ? Findings: ? The examined esophagus was normal. ? Evidence of a gastric bypass was found. A gastric pouch with a 4.5 cm ? length from the GE junction to the gastrojejunal anastomosis was found ? containing non erosive changes. The staple line appeared intact. The ? gastrojejunal anastomosis was characterized by friable mucosa, ? inflammation, an intact appearance, moderate stenosis and ulceration. ? This was traversed. Biopsies were taken with a cold forceps for ? Helicobacter pylori testing using CLOtest. ? A small type-I sliding hiatal hernia was found. ? The examined jejunum was normal. _ ? Impression: ?- Normal esophagus. ? - Gastric bypass with a pouch 4.5 cm in length and ? intact staple line. Gastrojejunal anastomosis ? characterized by friable mucosa, inflammation, an ? intact appearance, moderate stenosis and ulceration. ? Biopsied. ? - Small type-I sliding hiatal hernia. ? - Normal examined jejunum. Recommendation: ?- Await pathology results. ? - Discharge patient to home. ? - Resume previous diet. ? - Continue present medications. ? Procedure Code(s): ? --- Professional --- ? 73797, Esophagogastroduoden oscopy, flexible, transoral; with biopsy, ? single or multiple ? --- Technical --- ? 78748, Esophagogastroduoden oscopy, flexible, transoral; with biopsy, ? single or multiple Diagnosis Code(s): ? --- Professional --- ? K44.9, Diaphragmatic hernia without obstruction or gangrene ? R12, Heartburn ? Z09, Encounter for follow-up examination after completed treatment for ? conditions other than malignant neoplasm ? Z98.0, Intestinal bypass and anastomosis status ? --- Technical --- ? K44.9, Diaphragmatic hernia without obstruction or gangrene ? R12, Heartburn ? Z09, Encounter for follow-up examination after completed treatment for ? conditions other than malignant neoplasm ? Z98.0, Intestinal bypass and anastomosis status CPT copyright 2020 [employer]. All rights reserved. The codes documented in this report are preliminary and upon professional fee coder review may be revised to meet current compliance requirements. Yoel Juarez MD 02/09/2024 9:10:48 AM Number of Addenda: 0 Note Initiated On: 02/09/2024 8:08 AM [facility] 02/09/2024 8:08 AM CDT Narrative Procedure Note Yoel Juarez MD - 02/09/2024 9:13 AM CDT PLAN: F/u JAMIE bx Carafate for 6 weeks F/u in the office in 4-6 weeks to discuss possible revision of GJ Yoel Juarez MD GI PROCEDURE ORDERAB LES [facility] [place] [address] * FL Ugi Series (02/08/2024 9:12 AM CDT) Anatomical Region Laterality Modality Abdomen Radiographic Rosa ging 02/08/2024 9:26 AM CDT Impressions 02/08/2024 10:22 AM CDT IMPRESSION: 1.Berenice-en-Y bypass without obstruction or extravasation. 2.No inducible hiatal hernia evident during supine esophagography. Edited by Madeleine Almeida on 02/08/2024 9:34 AM > Interpreting Provider: Meliton Dahl MD on 02/08/2024 10:22 AM Narrative 02/08/2024 10:22 AM CDT PROCEDURE: ??FL UGI SERIES DATE/TIME OF EXAM: ??02/08/2024 9:15 AM CLINICAL INFORMATION: None relevant/not provided if blank. Indication: Z98.84: Bariatric surgery status. E66.01: Morbid (severe) obesity due to excess calories (HCC). K90.9: Intestinal malabsorption, unspecified (HCC). Additional History: Weight gain, approximately 10 years post bypass. COMPARISON: February 25, 2015. FINDINGS: Thin barium utilized. The esophagus empties readily into the stomach. With Valsalva, the size of the gastric pouch expands. There is no obstruction or extravasation. No definite ulceration to the Berenice loop. Berenice loop peristalsis is normal. No distention of the excluded stomach. No inducible reflux. FLUOROSCOPY DOSE: ??7.37 mGy Reference air kerma (ka,r). Fluoroscopy time: Procedure Note Meliton Dahl MD - 02/08/2024 PROCEDURE: FL UGI SERIES DATE/TIME OF EXAM: 02/08/2024 9:15 AM CLINICAL INFORMATION: None relevant/not provided if blank. Indication: Z98.84: Bariatric surgery status. E66.01: Morbid (severe) obesity due to excess calories (HCC). K90.9: Intestinal malabsorption, unspecified (HCC). Additional History: Weight gain, approximately 10 years post bypass. COMPARISON: February 25, 2015. FINDINGS: Thin barium utilized. The esophagus empties readily into the stomach. With Valsalva, the sizeof the gastric pouch expands. There is no obstruction or extravasation. No definite ulceration to the Berenice loop. Berenice loop peristalsis is normal.No distention of the excluded stomach. No inducible reflux. FLUOROSCOPY DOSE: 7.37 mGy Reference air kerma (ka,r). Fluoroscopytime: IMPRESSION: 1.Berenice-en-Y bypass without obstruction or extravasation. 2.No inducible hiatal hernia evident during supine esophagography. Edited by Madeleine Almeida on 02/08/2024 9:34 AM > Interpreting Provider: Meliton Dahl MD on 02/08/2024 10:22 AM Yoel Juarez MD FLUOROSCOPY ORDERABL ES * VITAMIN K1 (01/09/2024 8:18 AM CDT) Vitamin K 528 130 - 1500 pg/mL [facility] Comment: This test was developed and its analytical performance characteristics have been determined by [email or web address] [place], [place]. It has not been cleared or approved by the U.S. Food and Drug Administration. This assay has been validated pursuant to the CLIA regulations and is used for clinical purposes. Test Performed at: [facility]/[address] ??[phone] DARIEN MUSE MD,PHD Blood BLOOD SPECIMEN / Unknown 01/09/2024 8:18 AM CDT 01/09/2024 8:19 AM CDT Yoel Juarez MD LAB - CHEMISTRY BISI ANDREW Performing Organization Address [facility] Co de Phone Number [facility] [address] [place] [address] * ZINC BLOOD (01/09/2024 8:18 AM CDT) Zinc 72 60 - 130 mcg/dL [facility] Comment: This test was developed and its analytical performance characteristics have been determined by [email or web address]. It has not been cleared or approved by the FDA. This assay has been validated pursuant to the CLIA regulations and is used for clinical purposes. Test Performed at: [facility] [address] ??[phone] NATACHA THOMPSON Blood BLOOD SPECIMEN / Unknown 01/09/2024 8:18 AM CDT 01/09/2024 8:19 AM CDT Yoel Juarez MD LAB - CHEMISTRY BISI ANDREW Performing Organization Address City/[facility]/ZIP Co de Phone Number [facility] [address] [place] [address] * VITAMIN A (01/09/2024 8:18 AM CDT) Pathologist [facility] Vitamin A 63 38 - 98 mcg/dL [facility] Comment: (Note) Clin Chem Vol. 34.No.8. [id number]. 1998 Vitamin supplementation within 24 hours prior to blood draw may affect the accuracy of results. This test was developed and its analytical performance characteristics have been determined by [email or web address]. It has not been cleared or approved by the FDA. This assay has been validated pursuant to the CLIA regulations and is used for clinical purposes. [facility] [employer] [address] [place] [address] [employer] [address],[address] [place] [address] Loly Radford MD, PhD Test Performed at: [facility] [address] [place] [address] [place] [address] ??[phone] LOLY RADFORD MD,PHD Blood BLOOD SPECIMEN / Unknown 01/09/2024 8:18 AM CDT 01/09/2024 8:19 AM CDT Yoel Juarez MD LAB - CHEMISTRY BISI ANDREW [facility] Organization Address [facility]/ZIP Co de Phone Number [facility] [address] [place] [address] * VITAMIN E (01/09/2024 8:18 AM CDT) [facility] Alpha-Tocopherol 6.7 5.7 - 19.9 mg/L [facility] Comment: Levels of alpha-tocopherol <5 mg/L are consistent with Vitamin E deficiency in adults. Beta-Gamma Tocopherol 1.3 <4.4 mg/L [facility] Comment: (Note) Vitamin supplementation within 24 hours prior to blood draw may affect the accuracy of results. This test was developed and its analytical performance characteristics have been determined by [email or web address]. It has not been cleared or approved by the FDA. This assay has been validated pursuant to the CLIA regulations and is used for clinical purposes. [facility] [employer] [address] [facility] [place] [address],[address] [place] [address] Loly Radford MD, PhD Test Performed at: [facility] [address] [place] [address] [place] ??[phone] LOLY RADFORD MD,PHD Blood BLOOD SPECIMEN / Unknown 01/09/2024 8:18 AM CDT 01/09/2024 8:19 AM CDT Yoel Juarez MD LAB - CHEMISTRY BISI ANDREW Performing Organization Address [facility] Co de Phone Number [facility] [address] [place] [address] * VITAMIN B1 (01/09/2024 8:18 AM CDT) Only the most recent of2 resultswithin the time period is included. Vitamin B1 Whole Blood 95 78 - 185 nmol/L [facility] Comment: (Note) Vitamin supplementation within 24 hours prior to blood draw may affect the accuracy of the results. This test was developed and its analytical performance characteristics have been determined by [email or web address]. It has not been cleared or approved by FDA. This assay has been validated pursuant to the CLIA regulations and is used for clinical purposes. [employer] [address] [place] [address],[address] [facility] [address] Loly Radford MD, PhD Test Performed at: [facility] [address] [place] [address] [place] [address] ??[phone] LOLY RADFORD MD,PHD Blood BLOOD SPECIMEN / Unknown 01/09/2024 8:18 AM CDT 01/09/2024 8:19 AM CDT Yoel Juarez MD LAB - CHEMISTRY BISI ANDREW Performing Organization Address [facility] Co de Phone Number [facility] [address] [place] [address] * (ABNORMAL) COPPER BLOOD (01/09/2024 8:18 AM CDT) Copper 180(H) 70 - 175 mcg/dL [facility] Comment: This test was developed and its analytical performance characteristics have been determined by [email or web address]. It has not been cleared or approved by the FDA. This assay has been validated pursuant to the CLIA regulations and is used for clinical purposes. Test Performed at: [facility] [address] [place], [place] ??[phone] NATACHA THOMPSON Blood BLOOD SPECIMEN / Unknown 01/09/2024 8:18 AM CDT 01/09/2024 8:19 AM CDT Yoel Juarez MD LAB - CHEMISTRY BISI ANDREW Performing Organization Address [facility] Co de Phone Number [facility] [address] [place] [phone] * (ABNORMAL) VITAMIN D 25-HYDROXY (01/09/2024 8:18 AM CDT) Only the most recent of2 resultswithin the time period is included. Pathologist [facility] Vitamin D, 25 Hydroxy 22(L) 30 - 100 ng/mL [facility] Comment: Vitamin D Status ? 25-OH Vitamin D: Deficiency: ?<20 ng/mL Insufficiency: ? 20 - 29 ng/mL Optimal: ? > or = 30 ng/mL For 25-OH Vitamin D testing on patients on D2-supplementation and patients for whom quantitation of D2 and D3 fractions is required, the QuestAssureD(TM) 25-OH VIT D, (D2,D3), LC/MS/MS is recommended: order code 06813 (patients >2yrs). See Note 1 Note 1 For additional information, please refer to http://education.PLUQ.Saberr/faq/AEC233 (This link is being provided for informational/ educational purposes only.) Test Performed at: [facility] [address] [place], [place] ??[phone] LIVAN STAHL MD Blood BLOOD SPECIMEN / Unknown 01/09/2024 8:18 AM CDT 01/09/2024 8:19 AM CDT Yoel Juarez MD LAB - CHEMISTRY BISI ANDREW Performing Organization Address [facility] Co de Phone Number [facility] [address] [place] [address] * COMPREHENSIVE METABOLIC PANEL (01/09/2024 8:18 AM CDT) Only the most recent of2 resultswithin the time period is included. Glucose 79 65 - 99 mg/dL [facility] Comment: ? Fasting reference interval BUN 10 7 - 25 mg/dL [facility] Creatinine 0.61 0.50 - 0.97 mg/dL [facility] eGFR by Cystatin C 117 > OR = 60 mL/min/1. 73m2 [facility] BUN/Creatinine Ratio SEE NOTE: (calc) [facility] Comment: ?? Not Reported: BUN and Creatinine are within ?? reference range. ? Sodium 137 135 - 146 mmol/L [facility] Potassium 3.9 3.5 - 5.3 mmol/L [facility] Chloride 104 98 - 110 mmol/L [facility] CO2 25 20 - 32 mmol/L [facility] Calcium 8.8 8.6 - 10.2 mg/dL [facility] Protein Total 6.1 6.1 - 8.1 g/dL [facility] Albumin 3.9 3.6 - 5.1 g/dL [facility] Globulin Total 2.2 1.9 - 3.7 g/dL (calc) [facility] Albumin/Globulin Ratio 1.8 1.0 - 2.5 (calc) [facility] Bilirubin Total 0.9 0.2 - 1.2 mg/dL [facility] Alkaline Phosphatase 68 31 - 125 U/L [facility] AST 17 10 - 30 U/L [facility] ALT 19 6 - 29 U/L [facility] Comment: Test Performed at: [facility] ??[phone] LIVAN STAHL MD Blood BLOOD SPECIMEN / Unknown 01/09/2024 8:18 AM CDT 01/09/2024 8:19 AM CDT Yoel Juarez MD LAB - CHEMISTRY BISI ANDREW [address] [address] * PREALBUMIN (01/09/2024 8:18 AM CDT) Prealbumin 25 17 - 34 mg/dL [facility] Comment: Test Performed at: [facility] [address] [address] [address] [facility] [place] ??[phone] LIVAN STAHL MD Blood BLOOD SPECIMEN / Unknown 01/09/2024 8:18 AM CDT 01/09/2024 8:19 AM CDT Yoel Juarez MD LAB - CHEMISTRY ORDStephani ANDREW [facility] [address] [place] [address] * LAB RESULTS ORDER (03/26/2016) Nyasia Sandy REINSURANCE CLAIMS ANALYST-BOARD OF EDUCATION SECRETARY LAB - THE RAPEUTIC DRUG MONITORING ORDERABLES * GLUCOSE - POINT OF CARE (02/26/2015 7:26 AM JEWELRY MAKER) Only the most recent of5 resultswithin the time period is included. Pathologist [facility] Glucose WB/POC 86 70 - 106 mg/dL 02/26/2015 8:17 AM JEWELRY MAKER [facility] Blood BLOOD SPECIMEN / Unknown 02/26/2015 7:26 AM JEWELRY MAKER 02/26/2015 8:17 AM J[employer]ELRY [employer]KER Yoel Juarez MD LAB - POINT OF CARE ORDERABLES Performing Organization Address [facility] Co de Phone Number [facility] [address] [place] [address] * (ABNORMAL) CBC W AUTO DIFFERENTIAL (02/26/2015 5:21 AM JEWELRY MAKER) Only the most recent of3 resultswithin the time period is included. WBC 9.0 4.4 - 10.7 x10^9/L 02/26/2015 5:47 AM [facility] WBC Corrected x10^9/L 02/26/2015 5:47 AM [facility] RBC 4.51 3.80 - 5.20 x10^12/L 02/26/2015 5:47 AM [facility] Hemoglobin 13.1 12.0 - 15.6 gm/dL 02/26/2015 5:47 AM [facility] Hematocrit 38.9 35.9 - 45.5 % 02/26/2015 5:47 AM [facility] MCV 86.3 80.7 - 98.3 fl 02/26/2015 5:47 AM [facility] MCH 29.0 26.7 - 34.0 pg 02/26/2015 5:47 AM [facility] MCHC 33.7 30.8 - 35.9 gm/dL 02/26/2015 5:47 AM [facility] Platelet Count 254 153 - 416 x10^9/L 02/26/2015 5:47 AM [facility] RDW-CV 12.3 12.1 - 14.9 % 02/26/2015 5:47 AM [facility] MPV 10.6 9.4 - 12.9 fl 02/26/2015 5:47 AM [facility] Neutrophils % 65.2 44.0 - 73.0 % 02/26/2015 5:47 AM [facility] Lymphocytes % 21.0 20.0 - 43.0 % 02/26/2015 5:47 AM [facility] Monocytes % 7.0 5.0 - 13.0 % 02/26/2015 5:47 AM [facility] Eosinophils % 6.2(H) 0.0 - 6.0 % 02/26/2015 5:47 AM [facility] Basophils % 0.4 0.0 - 2.0 % 02/26/2015 5:47 AM [facility] Immature Granulocytes 0.2 0 - 1 % 02/26/2015 5:47 AM [facility] Neutrophil Absolute 5.89 2.01 - 7.14 x10^9/L 02/26/2015 5:47 AM [facility] Lymphocytes Absolute 1.90 1.07 - 3.94 x10^9/L 02/26/2015 5:47 AM [facility] Monocytes Absolute 0.63 0.26 - 1.07 x10^9/L 02/26/2015 5:47 AM [facility] Eosinophils Absolute 0.56(H) 0 - 0.47 x10^9/L 02/26/2015 5:47 AM [facility] Basophils Absolute 0.04 0 - 0.08 x10^9/L 02/26/2015 5:47 AM [facility] Immature Granulocytes Absolute 0.02 0.00 - 0.06 x10^9/L 02/26/2015 5:47 AM [facility] nRBC Auto 0 /100 WBC 02/26/2015 5:47 AM [facility] Blood BLOOD SPECIMEN / Unknown 02/26/2015 5:21 AM JEWELRY MAKER 02/26/2015 5:31 AM JEWELRY MAKER Yoel Juarez MD LAB - HEMATOLOGY ORD ERABLES Performing Organization Address [facility]/ZIP Co de Phone Number [facility] [address] [place] [address] * BASIC METABOLIC PANEL (CALCIUM TOTAL) (02/26/2015 5:21 AM JEWELRY MAKER) Only the most recent of2 resultswithin the time period is included. Pathologist [facility] [place] Glucose 94 74 - 106 mg/dL 02/26/2015 5:52 AM [facility] Sodium 138 136 - 145 mmol/L 02/26/2015 5:52 AM [facility] Potassium 3.6 3.5 - 5.1 mmol/L 02/26/2015 5:52 AM [facility] Chloride 104 98 - 107 mmol/L 02/26/2015 5:52 AM [facility] CO2 28 22 - 31 mmol/L 02/26/2015 5:52 AM [facility] Calcium 8.5 8.5 - 10.1 mg/dL 02/26/2015 5:52 AM [facility] Anion Gap 6 5 - 20 mmol/L 02/26/2015 5:52 AM [facility] BUN 7 7 - 21 mg/dL 02/26/2015 5:52 AM [facility] Creatinine 0.69 0.50 - 1.30 mg/dL 02/26/2015 5:52 AM [facility] eGFR by MDRD >60 >60 mL/min/1.7 3m2 02/26/2015 5:52 AM [facility] eGFR by MDRD >60 >60 mL/min/1.7 3m2 02/26/2015 5:52 AM [facility] Blood BLOOD SPECIMEN / Unknown 02/26/2015 5:21 AM JEWELRY MAKER 02/26/2015 5:31 AM JEWELRY MAKER Yoel Juarez MD LAB - CHEMISTRY ORDE RABLEONOR Performing Organization Address City/[facility]/ZIP Co de Phone Number [facility] [address] [place] [address] * FL FLUORO UPPER GI TRACT + KUB (02/25/2015 9:43 AM JEWELRY MAKER) Anatomical Region Laterality Modality Abdomen Radiographic Rosa ging 02/25/2015 9:52 AM JEWELRY MAKER Impressions 02/25/2015 9:53 AM JEWELRY MAKER Normal postsurgical appearance status post gastric bypass. There is no evidence of postsurgical leak or obstruction. Narrative 02/25/2015 9:53 AM JEWELRY MAKER Upper GI Study with Water Soluble Contrast Indication: Morbid obesity. Status post gastric bypass. Technique: Seam Press Operator KUB was obtained. Full strength Omnipaque 350 was administered and multiple images of the epigastric region were obtained. Final full abdominal film was obtained following completion of the procedure. 17 seconds fluoroscopy was provided. Findings: Seam Press Operator view demonstrates a benign bowel gas pattern. There no findings suggestive of cher obstruction. Cholecystectomy clips are present in the right upper quadrant. There is a small amount of free intraperitoneal air on dictaphone mechanic film consistent with recent surgery. After administration of oral Omnipaque, the esophagus empties into a small gastric remnant. This, in turn, empties readily into small bowel. Procedure Note Suzy Dumont MD - 02/25/2015 Upper GI Study with Water Soluble Contrast Indication: Morbid obesity. Status post gastric bypass. Technique: Seam Press Operator KUB was obtained. Full strength Omnipaque 350 was administered and multiple images of the epigastric region were obtained. Final full abdominal film was obtained following completion of the procedure. 17 seconds fluoroscopy was provided. Findings: Seam Press Operator view demonstrates a benign bowel gas pattern. There no findings suggestive of cher obstruction. Cholecystectomy clips are present in the right upper quadrant. There is a small amount of free intraperitoneal air on dictaphone mechanic film consistent with recent surgery. After administration of oral Omnipaque, the esophagus empties into a small gastric remnant. This, in turn, empties readily into small bowel. IMPRESSION Normal postsurgical appearance status post gastric bypass. There is no evidence of postsurgical leak or obstruction. Yoel Juarez MD FLUOROSCOPY ORDERABL ES * HCG URINE QUALITATIVE - POINT OF CARE (IP) (02/24/2015 1:26 PM JEWELRY MAKER) HCG Qual Urine Negative Negative [facility] QC Verified Yes Yes [facility] POC T TESTING Urine specimen (specimen) URINE / Unknown 02/24/2015 1:26 PM JEWELRY MAKER Chet Pham MD LAB - POINT OF CARE ORDERABLES Performing Organization Address [facility] Co de Phone Number [facility] [address] [place], [place] [address] [phone] * POTASSIUM BLOOD (02/24/2015 1:19 PM JEWELRY MAKER) Pathologist [facility] [place] Potassium 3.9 3.5 - 5.1 mmol/L 02/24/2015 1:31 PM JEWELRY MAKER [facility] Blood BLOOD SPECIMEN / Unknown 02/24/2015 1:19 PM JEWELRY MAKER 02/24/2015 1:22 PM JEWELRY MAKER Yoel Juarez MD LAB - CHEMISTRY BISI ANDREW Performing Organization Address [facility] Co de Phone Number [facility] [address] [place] [address] * VITAMIN B12 (02/05/2015 2:44 PM CDT) Pathologist [facility] [place] Vitamin B12 301 211 - 911 pg/mL 02/05/2015 3:43 PM CDT [facility] Blood BLOOD SPECIMEN / Unknown 02/05/2015 2:44 PM CDT 02/05/2015 2:51 PM CDT Yoel Juarez MD LAB - CHEMISTRY BISI ANDREW Performing Organization Address [facility] Co de Phone Number [facility] [address] [place] [address] * EKG 12-LEAD (02/05/2015 2:31 PM CDT) Ventricular Rate 70 BPM [facility] Atrial Rate 70 BPM [facility] P-R Interval 136 ms [facility] QRS Duration ms 88 ms [facility] Q-T Interval ms 412 ms [facility] QTC Calculation (Bezet) 444 ms [facility] Calculated P [place] 28 degrees [facility] Calculated R [place] 44 degrees [facility] Calculated T [place] 19 degrees [facility] Interpretation EKG Normal sinus rhythm Normal ECG No previous ECGs available Confirmed by BRANNON DARLING MD ([id number]) on 02/05/2015 5:21:49 PM [facility] 02/05/2015 2:31 PM CDT 02/05/2015 5:21 PM CDT Yoel Juarez MD ECG ORDERABLES [facility] * SLEEP STUDY (10/15/2014) Yoel Juarez MD SLEEP CENTER ORDERAB LES * LUPUS ANTICOAGULANT PANEL CONSULT (PO REF LAB) (03/07/2014) BLOOD SPECIMEN / Unknown Brian Mistry MD LAB - HEMATOLOGY ORD ERABLES [facility] ACCOUNT BILL Care Teams Junior Underwriter Relationship Specialty Start Date End Date None, Physician [address] [place] [address] PCP - General 02/09/24 Bruna Lazaro, RN Disk Grinder 02/24/15
--- OUTSIDE RECORDS SUMMARY | 2024-05-16 11:09 | XMS_ITS | Referral Summary ---
Author Organization [facility] [place] [address] Address [address] [place] [id number] Care Team Providers Care Players Assistant Name Role Phone Merrill Moyer MD Unavailable [phone] Chidi Andrew MD Unavailable [phone] Allergies No known active allergies Medications albuterol [...] it, Preservative Free, Intramuscular 02/14/2022 Tdap 04/17/2015 Social History Tobacco Use Types Packs/Day Years Used Date Smoking Tobacco: Never Smokeless Tobacco: Never Tobacco Cessation:Counseling Given: Not Answered PHQ-2 Answer Date Recorded PHQ-2 Total Score (If total score is 3 or more points, staff should administer the PHQ-9) 0 01/05/2023 Comments Unknown Sex and Gender Information Value Date Recorded Sex Assigned at Not on file Legal Sex Female 3:41 AM RAILROAD SUPERVISOR OF ENGINES Gender Identity Not on file Sexual Orientation Not on file Occupation Industry Job Start Date Job End Date [employer] Not on file Not on file Not on file Last Filed Vital Signs Vital Sign Reading Time Taken Comments Blood Pressure 113/76 01/05/2023 12:11 PM CDT Pulse 83 01/05/2023 12:11 PM CDT Temperature 36.7 ??C (98 ??F) 01/05/2023 12:11 PM CDT Respiratory Rate 14 03/15/2022 10:01 AM RAILROAD SUPERVISOR OF ENGINES Oxygen Saturation 98% 01/05/2023 12:11 PM CDT Inhaled Oxygen Concentration - - Weight 119.7 kg (264 lb) 01/05/2023 12:11 PM CDT Height 174 cm (5' 8.5 ) 01/05/2023 12:11 PM CDT Body Mass Index 39.55 01/05/2023 12:11 PM CDT Plan of Treatment Not on file Insurance [facility] Care Teams Players Assistant Relationship Specialty Start Date End Date Merrill Moyer MD [address] [id number] Referring Physician Obstetrics and Gynecology 01/05/23 Chidi Andrew MD [address] [place] [id number] Referring Physician Hematology and Oncology 01/05/23
--- OUTSIDE RECORDS SUMMARY | 2024-05-16 11:09 | XMS_ITS | Encounter Summary ---
Author Organization [facility] Address [address] [place] [address] Phone Care Team Providers Care Twill Cutter Name Role Phone Ang Citlaliangel Sharpe APRN, BUILD MASTER Primary Care Provide r Chidi Andrew MD Unavailable [phone] Encounter Details Date Type Department Care Team (Late st Contact Info) Description 01/13/2022 Telephone [facility] Oncology Services [address] [place] [address] Jerilyn Valderrama [place] Social History Tobacco Use Types Packs/Day Years Used Date Smoking Tobacco: Never Smokeless Tobacco: Never Alcohol Use Standard Drinks/Week Comments Yes 12 (1 standard drink = 0.6 oz pu re alcohol) ocassional Comments Unknown Sex and Gender Information Value Date Recorded Sex Assigned at Not on file Legal Sex Female 10:41 PM CDT Gender Identity Not on file Sexual Orientation Not on file COVID-19 Exposure Response Date Recorded In the last 10 days, have yo u been in contact with someone who was confirmed or suspected to have Coronavirus/COVID-19? No / Unsure 01/14/2022 12:57 PM CDT documented as of this encounter Miscellaneous Notes * Telephone Encounter - Jerilyn Valderrama - 01/13/2022 11:43 AM CDT LMOM for her to contact office regarding her infusion for tomorrow. It has not been approved thru insurance so will have to cancel her appointment. documented in this encounter Plan of Treatment Upcoming Encounters Date Type Department Care Team (Late st Contact Info) Description 01/03/2025 8:40 AM CDT [facility] [address] [place] [address] Chidi Andrew MD [address] [place] [address] Discharge Disposition: Discharged to home or Selfcare documented as of this encounter Visit Diagnoses Not on filedocumented in this encounter Care Teams Twill Cutter Relationship Specialty Start Date End Date Citlali Ang APRN, SELIN PCP - General Advanced Practice Nurse 12/31/18 Chidi Andrew MD [address] [place] [address] Consulting Physician Medical Oncology 11/22/23 documented as of this encounter
--- NOTE | 2024-05-16 11:21 | ED_ITS ---
HPI - Headache General Chief Complaint: Headache <Krissy Eaton PA-C - Last Filed: 05/17/24 17:06> Stated Complaint: R sided headache, vision problems <Krissy Eaton PA-C - Last Filed: 05/17/24 17:06> Time Seen by Provider: 05/16/24 11:21 <Krissy Eaton PA-C - Last Filed: 05/17/24 17:06> Focused HPI: This is a 38 year old female that presents to the ER for headache. Ongoing over the last several days. Reports worsening headache, nausea, vomiting, vision changes. Taking Ibuprofen and Tylenol with little relief. No history of migraines. No recent injuries or trauma. Denies fevers. GENERAL: Well-appearing, well-nourished, and in no acute distress. HEAD: Normocephalic, atraumatic. CHEST: Clear to auscultation. ?No respiratory distress. HEART: Regular rate and rhythm.? NEURO: ?Alert and oriented x3. Patient screened in triage and initial orders placed.? ?Additional care and disposition to be based upon?diagnostic testing and treatment. <Krissy Eaton PA-C - Last Filed: 05/17/24 17:06> History of Present Illness HPI Narrative: Agree with the above HPI <Ramses Velazco MD - Last Filed: 05/16/24 19:56> Related Data Home Medications: Home Medications ?Medication ?Instructions ?Recorded ?Confirmed ?Last Taken ?Type alprazolam 0.5 mg tablet 0.5 mg PO DAILY 01/04/21 05/16/24 Unknown History etonogestrel 0.12 mg-ethinyl 1 vag ring vaginal MONTHLY 01/04/21 05/16/24 Unknown History estradiol 0.015 mg/24 hr vaginal ring (NuvaRing) valacyclovir 500 mg tablet 500 mg PO DAILY 01/04/21 05/16/24 Unknown History zolpidem 12.5 mg tablet,extended 12.5 mg PO DAILY 01/04/21 05/16/24 Unknown History release,multiphase <Krissy Eaton PA-C - Last Filed: 05/17/24 17:06> Allergies/Adverse Reactions: Allergies Allergy/AdvReac Type Severity Reaction Status Date / Time naltrexone Allergy Unknown Unknown Verified 05/16/24 09:33 <Krissy Eaton PA-C - Last Filed: 05/17/24 17:06> Review of Systems 2 Review of Systems: All systems reviewed & are unremarkable except as noted in HPI and below <Ramses Velazco MD - Last Filed: 05/16/24 19:56> PMFSH Past Medical History Medical History: Medical History Anxiety <Krissy Eaton PA-C - Last Filed: 05/17/24 17:06> Surgical History Surgical History: Surgical History History of gastric bypass History of cholecystectomy <Krissy Eaton PA-C - Last Filed: 05/17/24 17:06> Family History Family History: Family History Mother Hypertension Other Diabetes mellitus <Krissy Eaton PA-C - Last Filed: 05/17/24 17:06> Social History Social History: Social History Smoking status: Never smoker Alcohol intake: never <Krissy Eaton PA-C - Last Filed: 05/17/24 17:06> Exam 2 Narrative: APPEARANCE: Well appearing, no pain, no distress, well-nourished. HEAD: normocephalic, atraumatic. EYES: PERRLA/EOMI, conjunctivae clear. NOSE: Normal no drainage EARS:TMS clear with good light reflex. THROAT: Pharynx clear, no exudate. NECK: Supple. No adenopathy, no masses. RESPIRATORY: Airway patent, respirations nonlabored. Clear to auscultation bilaterally, no rales, rhonchi, wheezing. CARDIOVASCULAR: Regular rate and rhythm without murmurs rubs or gallops. ABDOMINAL: Soft, nontender, nondistended, normal bowel sounds MUSCULOSKELETAL: Moves all extremities. Strength/ROM intact, No edema, No calf tenderness. NEURO: Alert. Cranial nerves II through XII intact. Normal forward and backward tandem gait, negative Romberg SKIN: Warm, dry. Normal Color <Ramses Velazco MD - Last Filed: 05/16/24 19:56> Course Vital Signs Vital signs: Vital Signs Temperature 97.7 F 05/16/24 10:21 Pulse Rate 78 05/16/24 10:21 Respiratory Rate 17 05/16/24 10:21 Blood Pressure 126/74 05/16/24 10:21 Pulse Oximetry 100 05/16/24 10:21 Oxygen Delivery Room Air 05/16/24 10:21 Temperature 97.7 F 05/16/24 10:21 Pulse Rate 98 05/16/24 14:28 Respiratory Rate 16 05/16/24 14:28 Blood Pressure 106/93 H 05/16/24 14:28 Pulse Oximetry 96 05/16/24 14:28 Oxygen Delivery Room Air 05/16/24 10:21 <Krissy Eaton PA-C - Last Filed: 05/17/24 17:06> Vital Signs Temperature 97.7 F 05/16/24 10:21 Pulse Rate 78 05/16/24 10:21 Respiratory Rate 17 05/16/24 10:21 Blood Pressure 126/74 05/16/24 10:21 Pulse Oximetry 100 05/16/24 10:21 Oxygen Delivery Room Air 05/16/24 10:21 Temperature 97.7 F 05/16/24 10:21 Pulse Rate 98 05/16/24 14:28 Respiratory Rate 16 05/16/24 14:28 Blood Pressure 106/93 H 05/16/24 14:28 Pulse Oximetry 96 05/16/24 14:28 Oxygen Delivery Room Air 05/16/24 10:21 <Ramses Velazco MD - Last Filed: 05/16/24 19:56> MDM - Headache MDM Narrative Medical decision making narrative: 38-year-old female presented to the emergency department for evaluation for right-sided headache. Patient was taking ibuprofen at home that did seem to help headache never resolved. Patient was treated with IV Reglan, IV Benadryl p.o. Tylenol and a L of IV fluid after patient had a negative head CT patient was then treated with IV Toradol. On re-evaluation patient states she does feel significantly improved. Patient family were educated on the potential diagnosis migraine versus cluster headache and on the treatment plan for home. Patient was advised to keep a migraine diary. All questions concerns were addressed patient was improved well-appearing at time of discharge. <Ramses Velazco MD - Last Filed: 05/16/24 19:56> Differential Diagnosis Differential diagnosis: Likely migraine, tension headache, subarachnoid hemorrhage, headache, meningitis, sinusitis and postconcussion syndrome <Ramses Velazco MD - Last Filed: 05/16/24 19:56> Lab Data Attestation: I reviewed the patient's lab results. <Ramses Velazco MD - Last Filed: 05/16/24 19:56> Result diagrams: 05/16/24 11:24 05/16/24 11:24 <Krissy Eaton PA-C - Last Filed: 05/17/24 17:06> Labs: Lab Results 05/16/24 Range/Units 11:24 WBC 8.0 (4.5-10.0) K/mm3 RBC 4.59 (4.2-5.4) M/mm3 Hgb 14.1 (12.0-15.0) g/dL Hct 42.0 (37.0-47.0) % MCV 91.5 (80-100) fl MCH 30.7 (26-34) pg MCHC 33.6 (32-36) g/dl RDW 12.7 (11.5-14.5) % Plt Count 265 (150-375) k/mm3 MPV 10.8 H (7.4-10.4) fl Immature Gran % (Auto) 0.2 (0-0.5) % Neut % (Auto) 62.8 (45.5-73.1) % Lymph % (Auto) 26.8 (18.3-44.2) % Cherry % (Auto) 7.1 (2.6-8.5) % Eos % (Auto) 2.2 (0-4.4) % Baso % (Auto) 0.9 (0.2-1.2) % Lymph # (Auto) 2.15 (0.9-3.2) K/mm3 Cherry # (Auto) 0.6 (0.1-0.6) K/mm3 Eos # (Auto) 0.2 (0-0.3) K/mm3 Baso # (Auto) 0.1 (0.0-0.1) K/mm3 Abs Immat Gran (auto) 0.02 (0.00-0.031) K/mm3 Absolute Neuts (auto) 5.0 (1.3-6.7) K/mm3 Absolute Nucleated RBC 0.000 (0.0-0.012) K/mm3 Nucleated RBC % 0.0 (0.0-0.2) % Sodium 140 (137-145) mmol/L Potassium 4.4 (3.4-5.0) mmol/L Chloride 103 (98-107) mmol/L Carbon Dioxide 26 (22-30) mmol/L Anion Gap 11 (4-12) mmol/L BUN 17 (7-17) mg/dL Creatinine 0.72 (0.7-1.0) mg/dL Estim Creat Clear Calc 127 ml/min Estimated GFR > 60 (59 - ) Glucose 84 (65-110) mg/dL Calcium 9.5 (8.4-10.2) mg/dL Total Bilirubin 0.9 (0.2-1.3) mg/dL AST 29 (14-36) U/L ALT 25 (6-35) U/L Alkaline Phosphatase 89 (38-126) U/L Total Protein 7.0 (6.3-8.2) g/dL Albumin 4.2 (3.5-5.1) g/dL <Krissy Eaton PA-C - Last Filed: 05/17/24 17:06> Lab Results 05/16/24 Range/Units 11:24 WBC 8.0 (4.5-10.0) K/mm3 RBC 4.59 (4.2-5.4) M/mm3 Hgb 14.1 (12.0-15.0) g/dL Hct 42.0 (37.0-47.0) % MCV 91.5 (80-100) fl MCH 30.7 (26-34) pg MCHC 33.6 (32-36) g/dl RDW 12.7 (11.5-14.5) % Plt Count 265 (150-375) k/mm3 MPV 10.8 H (7.4-10.4) fl Immature Gran % (Auto) 0.2 (0-0.5) % Neut % (Auto) 62.8 (45.5-73.1) % Lymph % (Auto) 26.8 (18.3-44.2) % Cherry % (Auto) 7.1 (2.6-8.5) % Eos % (Auto) 2.2 (0-4.4) % Baso % (Auto) 0.9 (0.2-1.2) % Lymph # (Auto) 2.15 (0.9-3.2) K/mm3 Cherry # (Auto) 0.6 (0.1-0.6) K/mm3 Eos # (Auto) 0.2 (0-0.3) K/mm3 Baso # (Auto) 0.1 (0.0-0.1) K/mm3 Abs Immat Gran (auto) 0.02 (0.00-0.031) K/mm3 Absolute Neuts (auto) 5.0 (1.3-6.7) K/mm3 Absolute Nucleated RBC 0.000 (0.0-0.012) K/mm3 Nucleated RBC % 0.0 (0.0-0.2) % Sodium 140 (137-145) mmol/L Potassium 4.4 (3.4-5.0) mmol/L Chloride 103 (98-107) mmol/L Carbon Dioxide 26 (22-30) mmol/L Anion Gap 11 (4-12) mmol/L BUN 17 (7-17) mg/dL Creatinine 0.72 (0.7-1.0) mg/dL Estim Creat Clear Calc 127 ml/min Estimated GFR > 60 (59 - ) Glucose 84 (65-110) mg/dL Calcium 9.5 (8.4-10.2) mg/dL Total Bilirubin 0.9 (0.2-1.3) mg/dL AST 29 (14-36) U/L ALT 25 (6-35) U/L Alkaline Phosphatase 89 (38-126) U/L Total Protein 7.0 (6.3-8.2) g/dL Albumin 4.2 (3.5-5.1) g/dL <Ramses Velazco MD - Last Filed: 05/16/24 19:56> Imaging Data Radiologist's impression: Impressions Head CT 05/16/24 11:36 IMPRESSION: 1. Normal brain. <Ramses Velazco MD - Last Filed: 05/16/24 19:56> Critical Care Time Critical Care Time Critical Care Time: No <Krissy Eaton PA-C - Last Filed: 05/17/24 17:06> Discharge Plan Discharge Clinical Impression: Right-sided headache Migraine Qualifiers: Migraine type: unspecified Status migrainosus presence: without status migrainosus Intractability: not intractable Qualified Code(s): G43.909 - Migraine, unspecified, not intractable, without status migrainosus <Krissy Eaton PA-C - Last Filed: 05/17/24 17:06> Patient Disposition: Home, Self-Care <Krissy Eaton PA-C - Last Filed: 05/17/24 17:06> Condition: Stable <KRISTI Kaiser Last Filed: 05/17/24 17:06> Instructions: Antibiotic Form, Migraine Headache (ED) <Krissy Eaton PA-C - Last Filed: 05/17/24 17:06> Additional Instructions: Drink plenty of fluids, keep a migraine diary. Have close follow-up with your primary care physician. If you have any worsening symptoms please call or return to the emergency department. <Krissy Eaton PA-C - Last Filed: 05/17/24 17:06> Patient Language: [place] <Krissy Eaton PA-C - Last Filed: 05/17/24 17:06> Prescriptions: No Action alprazolam 0.5 mg tablet 0.5 mg PO DAILY valacyclovir 500 mg tablet 500 mg PO DAILY etonogestrel-ethinyl estradiol [NuvaRing] 0.12-0.015 mg/24 hr ring 1 vag ring VAGINAL MONTHLY zolpidem 12.5 mg tablet,ext release multiphase 12.5 mg PO DAILY <Krissy Eaton PA-C - Last Filed: 05/17/24 17:06> Follow-up/Referrals: PHYSICIAN,RECORDS MANAGEMENT MANAGER [Non-Staff] - <Krissy Eaton PA-C - Last Filed: 05/17/24 17:06>
[2024-05-16 11:42] LABS: Basophils Absolute Auto 0.1 K/mm3 (0.0-0.1); Basophils Percent Auto 0.9 % (0.2-1.2); Eosinophils Absolute Auto 0.2 K/mm3 (0-0.3); Eosinophils Percent Auto 2.2 % (0-4.4); Hemoglobin 14.1 g/dL (12.0-15.0); Immature Granulocyte Absolute 0.02 K/mm3 (0.00-0.031); Immature Granulocyte Percent A 0.2 % (0-0.5); Lymphocytes Absolute Auto 2.15 K/mm3 (0.9-3.2); Lymphocytes Percent Auto 26.8 % (18.3-44.2); Mean Corpuscular HGB Conc 33.6 g/dl (32-36); Mean Corpuscular Hemoglobin 30.7 pg (26-34); Mean Corpuscular Volume 91.5 fl (80-100); Mean Platelet Volume 10.8 fl (7.4-10.4); Monocytes Absolute Auto 0.6 K/mm3 (0.1-0.6); Monocytes Percent Auto 7.1 % (2.6-8.5); Neutrophils Percent Auto 62.8 % (45.5-73.1); Platelet Count Result 265 k/mm3 (150-375); Red Blood Count 4.59 M/mm3 (4.2-5.4); Red Cell Distribution Width 12.7 % (11.5-14.5)
[2024-05-16 11:44] LABS: Alanine Aminotransferase 25 U/L (6-35); Albumin Level 4.2 g/dL (3.5-5.1); Alkaline Phosphatase 89 U/L (38-126); Anion Gap 11 mmol/L (4-12); Aspartate Amino Transferase 29 U/L (14-36); Bilirubin,Total 0.9 mg/dL (0.2-1.3); Blood Urea Nitrogen 17 mg/dL (7-17); Calcium 9.5 mg/dL (8.4-10.2); Carbon Dioxide 26 mmol/L (22-30); Chloride 103 mmol/L (98-107); Estimated CRCL calculation 127 ml/min; Estimated Glomerular Filt Rate > 60; Glucose 84 mg/dL (65-110); Potassium 4.4 mmol/L (3.4-5.0); Sodium 140 mmol/L (137-145)
[2024-05-16] MEDS: ACETAMINOPHEN 500 MG TABLET 1000 MG PO (12:31)
[2024-05-16] MEDS: METOCLOPRAMIDE HCL INJ 10 MG/2 ML VIAL IV PUSH (12:32)
[2024-05-16] MEDS: diphenhydrAMINE HCl INJ 50 MG/ML VIAL 25 MG IV PUSH (12:32)
[2024-05-16] MEDS: SODIUM CHLORIDE 0.9% IV 1,000 ML 999 ML IV CONT (12:35)
[2024-05-16 12:36] VITALS: BP 117/71; PULSE 68; RESP 16; O2SAT 100
--- OUTSIDE RECORDS SUMMARY | 2024-05-16 12:53 | XMS_ITS | Clinical Summary ---
Author Organization [facility] Address [address] [facility] [place] [address] Care Team Providers Care Lawn Service Supervisor Name Role Phone Bruna Lazaro RN Unavailable [phone] None, Physician Primary Care Provider Unavailabl e Source Comments [facility],non-owned Affiliates and Associated Physician Practices is amultiple site organization consisting of ambulatory clinics and hospital sitesin [place], [place], [place] and [place]. This disclosure is being madepursuant to the Care Everywhere program and may not contain all information available regarding this patient. Last updated 18.[facility] Allergies No known active allergies Medications * [...] Department Care Team Description 04/05/2024 12:15 PM AB[employer] LIAISON OFFICER Clinical Support [facility] Health Weight Management Services [address] [place] [address], [address] [place] [address] Morbid obesity (HCC) 03/11/2024 Refill [facility] Weight Management Services [address] [place] [address], [address] [place] [address] Yoel Juarez MD MEDICATION REFILL 03/08/2024 1:40 PM [employer] LIAISON OFFICER Office Visit [facility] Weight Management Services [address] [place] [address], [address] [place] [address] Yoel Juarez MD Morbid obesity (HCC) (Primary Dx) 03/01/2024 9:45 AM [employer] LIAISON OFFICER Video Visit [facility] Management Services [id number] [place] [address], [address] [place] [address] Morbid obesity (HCC) 02/23/2024 9:00 AM [employer] LIAISON OFFICER Video Visit [facility] Health Weight Management Services [address] [facility], [address] [place] [address] Bariatric surgery status from Last [...] Comments Blood Pressure 130/82 03/08/2024 1:43 PM [employer] LIAISON OFFICER Pulse 78 03/08/2024 1:43 PM [employer] LIAISON OFFICER Temperature 36.1 ??C (96.9 ??F) 03/08/2024 1:43 PM CS T Respiratory Rate 21 02/09/2024 9:25 AM CDT Oxygen Saturation 98% 03/08/2024 1:43 PM [employer]IA[employer] OFFICER Inhaled Oxygen Concentration - - Weight 121.9 kg (268 lb 12.8 oz) 2023 12:31 PM [employer] LIAISON OFFICER Height 171.5 cm (5' 7.5 ) 04/05/2024 12 :31 PM [employer] LIAISON OFFICER Body Mass Index 41.48 04/05/2024 12:31 PM [employer] LIAISON OFFICER Plan of Treatment Upcoming Encounters Date Type Department Care Team (Late st Contact Info) Description 05/31/2024 2:40 PM [employer] LIAISON OFFICER Office Visit [facility] Weight Management Services [address] [facility], [address] [place] [address] [place] [address] [facility] [address] [place] [address] Health Maintenance Due Date Last [...] 8:31 PM 02/26/2015 12:25 PM Care Teams Lawn Service Supervisor Relationship Specialty Start Date End Date None, Physician [address] [place] [address] PCP - General 02/09/24 Bruna Lazaro, RN Manager Validation 02/24/15
--- OUTSIDE RECORDS SUMMARY | 2024-05-16 12:53 | XMS_ITS | Referral Summary ---
Author Organization [facility] [address] Address [address] [place] [address] Care Team Providers Care Casting Director Name Role Phone Merrill Moyer MD Unavailable [phone] Chidi Andrew MD Unavailable [phone] Allergies No known active allergies Medications albuterol [...] on file Legal Sex Female 3:41 AM LOGISTICS PLANNING MANAGER Gender Identity Not on file Sexual Orientation Not on file Occupation Industry Job Start Date Job End Date [employer] Not on file Not on file Not on file Last Filed Vital Signs Vital Sign Reading Time Taken Comments Blood Pressure 113/76 01/05/2023 12:11 PM CDT Pulse 83 01/05/2023 12:11 PM CDT Temperature 36.7 ??C (98 ??F) 01/05/2023 12:11 PM CDT Respiratory Rate 14 03/15/2022 10:01 AM LOGISTICS PLANNING MANAGER Oxygen Saturation 98% 01/05/2023 12:11 PM CDT Inhaled Oxygen Concentration - - Weight 119.7 kg (264 lb) 01/05/2023 12:11 PM CDT Height 174 cm (5' 8.5 ) 01/05/2023 12:11 PM CDT Body Mass Index 39.55 01/05/2023 12:11 PM CDT Plan of Treatment Not on file Insurance [employer] Care Teams Casting Director Relationship Specialty Start Date End Date Merrill Moyer MD [address] [id number] Referring Physician Obstetrics and Gynecology 01/05/23 Chidi Andrew MD [address] [place] [address] Referring Physician Hematology and Oncology 01/05/23
--- OUTSIDE RECORDS SUMMARY | 2024-05-16 12:53 | XMS_ITS | Clinical Summary ---
Author Organization [facility] [employer] [place] Address [address] [facility] [place] [address] Care Team Providers Care Channel Rougher Name Role Phone Park Montalvo MD Primary Care Provider [phone] Allergies No known active allergies Medications NUVARING [...] COVID-19 VACCINE - EMERGENCY USE AUTHORIZATION, MRNA, [id number](PF) 30 MCG/0.3 ML IM SUSP 02/14/2021,08/11/2020 Family [...] on file Legal Sex Female 9:24 AM UTILITY TRACTOR OPERATOR Gender Identity Not on file Sexual [...] to complete this topic Insurance * Guarantor: [employer]RU K (C) Account Type Relation to Patient Date of Phone Billing Address Corporate Employer ATTN: JANELLE PAUL [address] [address] [employer] OPEN ACCESS * Guarantor: [employer] Account Type Relation to Patient Date of Phone Billing Address Corporate Employer ATTN: JANELLE PAUL [address] [address] Care Teams Channel Rougher Relationship Specialty Start Date End Date Park Montalvo MD [address] [place] [phone] PCP - General Internal Medicine 12/08/23
--- OUTSIDE RECORDS SUMMARY | 2024-05-16 12:53 | XMS_ITS | Patient Health Summary ---
Author Organization [facility] [employer] Address [address] [place] [address] Care Team Providers Care Temporary Staff Accountant Name Role Phone Bruna Lazaro RN Unavailable [phone] None, Physician Primary Care Provider Unavailabl e Note from [facility],non-owned Affiliates and Associated Physician Practices is amultiple site organization consisting of ambulatory clinics and hospital sitesin [place], [place], [place] and [place]. This disclosure is being madepursuant to the Care Everywhere program and may not contain all information available regarding this patient. Last updated 18.[facility] [employer] Allergies No known active allergies Medications * [...] Comments Blood Pressure 130/82 03/08/2024 1:43 PM YOUTH ASSOCIATE Pulse 78 03/08/2024 1:43 PM YOUTH ASSOCIATE Temperature 36.1 ??C (96.9 ??F) 03/08/2024 1:43 PM CS T Respiratory Rate 21 02/09/2024 9:25 AM CDT Oxygen Saturation 98% 03/08/2024 1:43 PM YOUTH ASSOCIATE Inhaled Oxygen Concentration - - Weight 121.9 kg (268 lb 12.8 oz) 2023 12:31 PM YOUTH ASSOCIATE Height 171.5 cm (5' 7.5 ) 04/05/2024 12 :31 PM YOUTH ASSOCIATE Body Mass Index 41.48 04/05/2024 12:31 PM YOUTH ASSOCIATE Procedures * HELICOBACTER PYLORI UREASE (STL)(Performed 02/09/2024) Performed for Diagnosis unknown * HCG URINE QUAL POCT NOTIFICATION(Performed 02/09/2024) Performed for Preop examination * HCG URINE QUALITATIVE - POCT (IP) INTERFACED(Performed 02/09/2024) * [place] ED EGD FLEX TRANSORAL DX(Performed 02/09/2024) * [...] Initial Negative Negative 02/10/2024 10:13 AM CDT [facility] Helicobacter pylori Urease Final Negative Negative 02/10/2024 10:13 AM CDT [facility] Microbiology GASTRIC ANTRAL BIOPSY SPECIMEN / Unknown 02/09/2024 9:07 AM CDT 02/09/2024 4:37 PM CDT Yoel Juarez MD LAB - MICROBIOLOGY O RDERABLES Performing Organization Address City/[facility]/ZIP Co de Phone Number [facility] [address] [place] [address] * HCG URINE QUAL POCT NOTIFICATION (02/09/2024 9:00 AM CDT) Comment Notification Label Only - See Separate Report 02/09/2024 9:00 AM CDT [facility] Urine URINE / Unknown 7:52 AM CDT Emi Harden DO LAB - URINALYSIS ORD ERABLES Performing Organization Address [facility] Co de Phone Number [facility] [address] [place] [address] * HCG URINE QUALITATIVE - POCT (IP) INTERFACED (02/09/2024 8:54 AM CDT) HCG Qual Urine Negative Negative 02/09/2024 9:00 AM CDT [facility] Urine URINE / Unknown 02/09/2024 8 :54 AM CDT 02/09/2024 9:00 AM CDT Yoel Juarez MD LAB - POINT OF CARE ORDERABLES Performing Organization Address [facility] Co de Phone Number [facility] [id number] [place] [address] * EGD (02/09/2024 8:08 AM CDT) [...] Procedure Code(s): ? --- Professional --- ? 79314, Esophagogastroduoden oscopy, flexible, transoral; with biopsy, ? single or multiple ? --- Technical --- ? 82849, Esophagogastroduoden oscopy, flexible, transoral; with biopsy, ? [...] bypass and anastomosis status CPT copyright 2020 [employer]. All rights reserved. The codes documented in this report are preliminary and upon kapok and cotton machine operator review may be revised to meet current compliance requirements. Yoel Juarez MD 02/09/2024 9:10:48 AM Number of Addenda: 0 Note Initiated On: 02/09/2024 8:08 AM [facility] 02/09/2024 8:08 AM CDT Narrative Procedure Note Yoel Juarez MD - 02/09/2024 9:13 AM CDT PLAN: F/u JAMIE bx Carafate for 6 weeks F/u in the office in 4-6 weeks to discuss possible revision of GJ Yoel Juarez MD GI PROCEDURE ORDERAB LES [facility] [place] [address] * FL Ugi Series (02/08/2024 9:12 AM [...] analytical performance characteristics have been determined by [facility] [place], [place]. It has not been cleared or approved by the U.S. Food and Drug Administration. This assay has been validated pursuant to the CLIA regulations and is used for clinical purposes. Test Performed at: [facility]/[address] ??[phone] DARIEN MUSE MD,PHD Blood BLOOD SPECIMEN / Unknown 01/09/2024 8:18 AM CDT 01/09/2024 8:19 AM CDT Yoel Juarez MD LAB - CHEMISTRY BISI ANDREW Performing Organization Address [facility] Co de Phone Number [facility] [address] [place] [address] * ZINC BLOOD (01/09/2024 8:18 AM CDT) Zinc 72 60 - 130 mcg/dL [facility] Comment: This test was developed and its analytical performance characteristics have been determined by [facility]. It has not been cleared or approved by the FDA. This assay has been validated pursuant to the CLIA regulations and is used for clinical purposes. Test Performed at: [facility] [address] ??[phone] NATACHA THOMPSON Blood BLOOD SPECIMEN / Unknown 01/09/2024 8:18 AM CDT 01/09/2024 8:19 AM CDT Yoel Juarez MD LAB - CHEMISTRY BISI ANDREW Performing Organization Address City/[facility]/ZIP Co de Phone Number [facility] [address] [place] [address] * VITAMIN A (01/09/2024 8:18 AM CDT) Pathologist [facility] Vitamin A 63 38 - 98 mcg/dL [facility] Comment: (Note) Clin Chem Vol. 34.No.8. [id number]. 1998 Vitamin supplementation within 24 hours prior to blood draw may affect the accuracy of results. This test was developed and its analytical performance characteristics have been determined by [facility]. It has not been cleared or approved by the FDA. This assay has been validated pursuant to the CLIA regulations and is used for clinical purposes. [facility] [address] [place] [address] [employer] [address],[address] [place] [address] Loly Radford MD, PhD Test Performed at: [facility] [address] [place] [address] [place] [address] ??[phone] LOLY RADFORD MD,PHD Blood BLOOD SPECIMEN / Unknown 01/09/2024 8:18 AM CDT 01/09/2024 8:19 AM CDT Yoel Juarez MD LAB - CHEMISTRY BISI ANDREW [facility] Organization Address [facility]/ZIP Co de Phone Number [facility] [address] [place] [address] * VITAMIN E (01/09/2024 8:18 AM CDT) [facility] Alpha-Tocopherol 6.7 5.7 - 19.9 mg/L [facility] Comment: Levels of alpha-tocopherol <5 mg/L are consistent with Vitamin E deficiency in adults. Beta-Gamma Tocopherol 1.3 <4.4 mg/L [facility] Comment: (Note) Vitamin supplementation within 24 hours prior to blood draw may affect the accuracy of results. This test was developed and its analytical performance characteristics have been determined by [facility]. It has not been cleared or approved by the FDA. This assay has been validated pursuant to the CLIA regulations and is used for clinical purposes. [facility] [address] [facility] [employer] [address],[address] [place] [address] Loly Radford MD, PhD Test Performed at: [facility] [address] [place] [address] [place] ??[phone] LOLY RADFORD MD,PHD Blood BLOOD SPECIMEN / Unknown 01/09/2024 8:18 AM CDT 01/09/2024 8:19 AM CDT Yoel Juarez MD LAB - CHEMISTRY BISI ANDREW Performing Organization Address [facility] Co de Phone Number [facility] [address] [place] [address] * VITAMIN B1 (01/09/2024 8:18 AM CDT) Only the most recent of2 resultswithin the time period is included. Vitamin B1 Whole Blood 95 78 - 185 nmol/L [facility] Comment: (Note) Vitamin supplementation within 24 hours prior to blood draw may affect the accuracy of the results. This test was developed and its analytical performance characteristics have been determined by [facility]. It has not been cleared or approved by FDA. This assay has been validated pursuant to the CLIA regulations and is used for clinical purposes. [facility] [address] [place] [address],[address] [facility] [address] Loly Radford MD, PhD Test Performed at: [facility] [address] [place] [address] [place] [address] ??[phone] LOLY RADFORD MD,PHD Blood BLOOD SPECIMEN / Unknown 01/09/2024 8:18 AM CDT 01/09/2024 8:19 AM CDT Yoel Juarez MD LAB - CHEMISTRY BISI ANDREW Performing Organization Address [facility] Co de Phone Number [facility] [address] [place] [address] * (ABNORMAL) COPPER BLOOD (01/09/2024 8:18 AM CDT) Copper 180(H) 70 - 175 mcg/dL [facility] Comment: This test was developed and its analytical performance characteristics have been determined by [facility]. It has not been cleared or approved by the FDA. This assay has been validated pursuant to the CLIA regulations and is used for clinical purposes. Test Performed at: [facility] [address] [place], [place] ??[phone] NATACHA THOMPSON Blood BLOOD SPECIMEN / Unknown 01/09/2024 8:18 AM CDT 01/09/2024 8:19 AM CDT Yoel Juarez MD LAB - CHEMISTRY BISI ANDREW Performing Organization Address [facility] Co de Phone Number [facility] [address] [place] [phone] * (ABNORMAL) VITAMIN D 25-HYDROXY (01/09/2024 8:18 [...] D, (D2,D3), LC/MS/MS is recommended: order code [id number] (patients >2yrs). See Note 1 Note 1 For additional information, please refer to http://education.Shift Network.Venuefox/faq/KVJ061 (This link is being provided for informational/ educational purposes only.) Test Performed at: [facility] [address] [place], [place] ??[phone] LIVAN STAHL MD Blood BLOOD SPECIMEN / Unknown 01/09/2024 8:18 AM CDT 01/09/2024 8:19 AM CDT Yoel Juarez MD LAB - CHEMISTRY BISI ANDREW Performing Organization Address [facility] Co de Phone Number [facility] [address] [place] [address] * COMPREHENSIVE METABOLIC PANEL (01/09/2024 8:18 AM [...] 29 U/L [facility] Comment: Test Performed at: [facility] ??[phone] LIVAN STAHL MD Blood BLOOD SPECIMEN / Unknown 01/09/2024 8:18 AM CDT 01/09/2024 8:19 AM CDT Yoel Juarez MD LAB - CHEMISTRY BISI ANDREW [address] [address] * PREALBUMIN (01/09/2024 8:18 AM CDT) Prealbumin 25 17 - 34 mg/dL [facility] Comment: Test Performed at: [facility] [place] [address] [address] [facility] [place] [place] ??[phone] LIVAN STAHL MD Blood BLOOD SPECIMEN / Unknown 01/09/2024 8:18 AM CDT 01/09/2024 8:19 AM CDT Yoel Juarez MD LAB - CHEMISTRY ORDStephani ANDREW [facility] [address] [place] [address] * LAB RESULTS ORDER (03/26/2016) Nyasia Sandy TELEGRAPHIC INSTRUMENT SUPERVISOR-PARTS AND SERVICE MANAGER LAB - THE RAPEUTIC DRUG MONITORING ORDERABLES * GLUCOSE - POINT OF CARE (02/26/2015 7:26 AM YOUTH ASSOCIATE) Only the most recent of5 resultswithin the time period is included. Pathologist [facility] Glucose WB/POC 86 70 - 106 mg/dL 02/26/2015 8:17 AM YOUTH ASSOCIATE [facility] Blood BLOOD SPECIMEN / Unknown 02/26/2015 7:26 AM YOUTH ASSOCIATE 02/26/2015 8:17 AM YOUTH ASSOCIATE Yoel Juarez MD LAB - POINT OF CARE ORDERABLES Performing Organization Address [facility] Co de Phone Number [facility] [address] [place] [address] * (ABNORMAL) CBC W AUTO DIFFERENTIAL (02/26/2015 5:21 AM YOUTH ASSOCIATE) Only the most recent of3 resultswithin the time period is included. WBC 9.0 4.4 - 10.7 x10^9/L 02/26/2015 5:47 AM YOUTH ASSOCIATE [facility] WBC Corrected x10^9/L 02/26/2015 5:47 AM YOUTH ASSOCIATE [facility] RBC 4.51 3.80 - 5.20 x10^12/L 02/26/2015 5:47 AM YOUTH ASSOCIATE [facility] Hemoglobin 13.1 12.0 - 15.6 gm/dL 02/26/2015 5:47 AM YOUTH ASSOCIATE [facility] Hematocrit 38.9 35.9 - 45.5 % 02/26/2015 5:47 AM YOUTH ASSOCIATE [facility] MCV 86.3 80.7 - 98.3 fl 02/26/2015 5:47 AM [facility] MCH 29.0 26.7 - 34.0 pg 02/26/2015 5:47 AM [facility] MCHC 33.7 30.8 - 35.9 gm/dL 02/26/2015 5:47 AM [facility] Platelet Count 254 153 - 416 x10^9/L 02/26/2015 5:47 AM [facility] RDW-CV 12.3 12.1 - 14.9 % 02/26/2015 5:47 AM [facility] MPV 10.6 9.4 - 12.9 fl 02/26/2015 5:47 AM [facility] Neutrophils % 65.2 44.0 - 73.0 % 02/26/2015 5:47 AM [facility] Lymphocytes % 21.0 20.0 - 43.0 % 02/26/2015 5:47 AM [facility] Monocytes % 7.0 5.0 - 13.0 % 02/26/2015 5:47 AM [facility] Eosinophils % 6.2(H) 0.0 - 6.0 % 02/26/2015 5:47 AM [facility] Basophils % 0.4 0.0 - 2.0 % 02/26/2015 5:47 AM [facility] Immature Granulocytes 0.2 0 - 1 % 02/26/2015 5:47 AM [facility] Neutrophil Absolute 5.89 2.01 - 7.14 x10^9/L 02/26/2015 5:47 AM [facility] Lymphocytes Absolute 1.90 1.07 - 3.94 x10^9/L 02/26/2015 5:47 AM [facility] Monocytes Absolute 0.63 0.26 - 1.07 x10^9/L 02/26/2015 5:47 AM [facility] Eosinophils Absolute 0.56(H) 0 - 0.47 x10^9/L 02/26/2015 5:47 AM [facility] Basophils Absolute 0.04 0 - 0.08 x10^9/L 02/26/2015 5:47 AM [facility] Immature Granulocytes Absolute 0.02 0.00 - 0.06 x10^9/L 02/26/2015 5:47 AM [facility] nRBC Auto 0 /100 WBC 02/26/2015 5:47 AM [facility] Blood BLOOD SPECIMEN / Unknown 02/26/2015 5:21 AM YOUTH ASSOCIATE 02/26/2015 5:31 AM YOUTH ASSOCIATE Yoel Juarez MD LAB - HEMATOLOGY ORD ERABLES Performing Organization Address [facility]/ZIP Co de Phone Number [facility] [address] [place] [address] * BASIC METABOLIC PANEL (CALCIUM TOTAL) (02/26/2015 5:21 AM YOUTH ASSOCIATE) Only the most recent of2 resultswithin the time period is included. Pathologist [facility] Glucose 94 74 - 106 mg/dL 02/26/2015 5:52 AM [facility] Sodium 138 136 - 145 mmol/L 02/26/2015 5:52 AM [facility] Potassium 3.6 3.5 - 5.1 mmol/L 02/26/2015 5:52 AM [facility] Chloride 104 98 - 107 mmol/L 02/26/2015 5:52 AM [facility] CO2 28 22 - 31 mmol/L 02/26/2015 5:52 AM [facility] Calcium 8.5 8.5 - 10.1 mg/dL 02/26/2015 5:52 AM [facility] Anion Gap 6 5 - 20 mmol/L 02/26/2015 5:52 AM [facility] BUN 7 7 - 21 mg/dL 02/26/2015 5:52 AM [facility] Creatinine 0.69 0.50 - 1.30 mg/dL 02/26/2015 5:52 AM [facility] eGFR by MDRD >60 >60 mL/min/1.7 3m2 02/26/2015 5:52 AM [facility] eGFR by MDRD >60 >60 mL/min/1.7 3m2 02/26/2015 5:52 AM [facility] Blood BLOOD SPECIMEN / Unknown 02/26/2015 5:21 AM YOUTH ASSOCIATE 02/26/2015 5:31 AM YOUTH ASSOCIATE Yoel Juarez MD LAB - CHEMISTRY ORDE RABLEONOR Performing Organization Address City/[facility]/ZIP Co de Phone Number [facility] [address] [place] [address] * FL FLUORO UPPER GI TRACT + KUB (02/25/2015 9:43 AM YOUTH ASSOCIATE) Anatomical Region Laterality Modality Abdomen Radiographic Rosa ging 02/25/2015 9:52 AM YOUTH ASSOCIATE Impressions 02/25/2015 9:53 AM YOUTH ASSOCIATE Normal postsurgical appearance status post gastric bypass. There is no evidence of postsurgical leak or obstruction. Narrative 02/25/2015 9:53 AM YOUTH ASSOCIATE Upper GI Study with Water Soluble Contrast Indication: Morbid obesity. Status post gastric bypass. Technique: Cyber Engineer KUB was obtained. Full strength Omnipaque 350 was administered and multiple images of the epigastric region were obtained. Final full abdominal film was obtained following completion of the procedure. 17 seconds fluoroscopy was provided. Findings: Cyber Engineer view demonstrates a benign bowel gas pattern. There no findings suggestive of cher obstruction. Cholecystectomy clips are present in the right upper quadrant. There is a small amount of free intraperitoneal air on deputy united states marshal film consistent with recent surgery. After administration of oral Omnipaque, the esophagus empties into a small gastric remnant. This, in turn, empties readily into small bowel. Procedure Note Suzy Dumont MD - 02/25/2015 Upper GI Study with Water Soluble Contrast Indication: Morbid obesity. Status post gastric bypass. Technique: Cyber Engineer KUB was obtained. Full strength Omnipaque 350 was administered and multiple images of the epigastric region were obtained. Final full abdominal film was obtained following completion of the procedure. 17 seconds fluoroscopy was provided. Findings: Cyber Engineer view demonstrates a benign bowel gas pattern. There no findings suggestive of cher obstruction. Cholecystectomy clips are present in the right upper quadrant. There is a small amount of free intraperitoneal air on deputy united states marshal film consistent with recent surgery. After administration of oral Omnipaque, the esophagus empties into a small gastric remnant. This, in turn, empties readily into small bowel. IMPRESSION Normal postsurgical appearance status post gastric bypass. There is no evidence of postsurgical leak or obstruction. Yoel Juarez MD FLUOROSCOPY ORDERABL ES * HCG URINE QUALITATIVE - POINT OF CARE (IP) (02/24/2015 1:26 PM YOUTH ASSOCIATE) HCG Qual Urine Negative Negative [facility] QC Verified Yes Yes [facility] POC T TESTING Urine specimen (specimen) URINE / Unknown 02/24/2015 1:26 PM YOUTH ASSOCIATE Chet Pham MD LAB - POINT OF CARE ORDERABLES Performing Organization Address [facility] Co de Phone Number [facility]CT [facility] [address] [place], [place] [address] [phone] * POTASSIUM BLOOD (02/24/2015 1:19 PM YOUTH ASSOCIATE) Pathologist [facility] Potassium 3.9 3.5 - 5.1 mmol/L 02/24/2015 1:31 PM YOUTH ASSOCIATE [facility] Blood BLOOD SPECIMEN / Unknown 02/24/2015 1:19 PM YOUTH ASSOCIATE 02/24/2015 1:22 PM YOUTH ASSOCIATE Yoel Juarez MD LAB - CHEMISTRY BISI ANDREW Performing Organization Address [facility] Co de Phone Number [facility] [address] [place] [address] * VITAMIN B12 (02/05/2015 2:44 PM CDT) Pathologist [facility] Vitamin B12 301 211 - 911 pg/mL 02/05/2015 3:43 PM CDT [facility] Blood BLOOD SPECIMEN / Unknown 02/05/2015 2:44 PM CDT 02/05/2015 2:51 PM CDT Yoel Juarez MD LAB - CHEMISTRY BISI ANDREW Performing Organization Address [facility] Co de Phone Number [facility] [address] [place] [address] * EKG 12-LEAD (02/05/2015 2:31 PM CDT) Ventricular Rate 70 BPM [facility] Atrial Rate 70 BPM [facility] P-R Interval 136 ms [facility] QRS Duration ms 88 ms [facility] Q-T Interval ms 412 ms [facility] QTC Calculation (Bezet) 444 ms [facility] Calculated P Chardon 28 degrees [facility] Calculated R Chardon 44 degrees [facility] Calculated T Chardon 19 degrees [facility] Interpretation EKG Normal sinus rhythm Normal ECG No previous ECGs available Confirmed by BRANNON DARLING MD ([id number]) on 02/05/2015 5:21:49 PM [facility] 02/05/2015 2:31 PM CDT 02/05/2015 5:21 PM CDT Yoel Juarez MD ECG ORDERABLES [facility] * SLEEP STUDY (10/15/2014) Yoel Juarez MD SLEEP CENTER ORDERAB LES * LUPUS ANTICOAGULANT PANEL CONSULT (PO REF LAB) (03/07/2014) BLOOD SPECIMEN / Unknown Brian Mistry MD LAB - HEMATOLOGY ORD ERABLES [facility] ACCOUNT BILL Care Teams Temporary Staff Accountant Relationship Specialty Start Date End Date None, Physician [address] [place] [address] PCP - General 02/09/24 Bruna Lazaro, RN Care Transitions Nurse 02/24/15
--- OUTSIDE RECORDS SUMMARY | 2024-05-16 12:53 | XMS_ITS | Clinical Summary ---
Author Organization [facility] [place] [place] [address] [place] Address [address] [place] [address] Care Team Providers Care Transcribing Operators Supervisor Name Role Phone Merrill Moyer MD Unavailable [phone] Chidi Andrew MD Unavailable [phone] Allergies No known active allergies Medications albuterol [...] on file Legal Sex Female 3:41 AM ORDNANCE MECHANIC Gender Identity Not on file Sexual Orientation Not on file Occupation Industry Job Start Date Job End Date [employer] [facility], [employer] Not on file Not on file Not on file Obstetrics History Last Filed Vital Signs Vital Sign Reading Time Taken Comments Blood Pressure 113/76 01/05/2023 12:11 PM CDT Pulse 83 01/05/2023 12:11 PM CDT Temperature 36.7 ??C (98 ??F) 01/05/2023 12:11 PM CDT Respiratory Rate 14 03/15/2022 10:01 AM ORDNANCE MECHANIC Oxygen Saturation 98% 01/05/2023 12:11 PM CDT [...] age to complete this topic Insurance EMPLOYEES [employer] EMPLOYEES [facility] [employer] EMPLOYEES Care Teams Transcribing Operators Supervisor Relationship Specialty Start Date End Date Merrill Moyer MD [address] [address] Referring Physician Obstetrics and Gynecology 01/05/23 Chidi Andrew MD [address] [facility] [address] [place] [address] Referring Physician Hematology and Oncology 01/05/23
--- OUTSIDE RECORDS SUMMARY | 2024-05-16 12:53 | XMS_ITS | Referral Summary ---
Author Organization [facility] Health Address [address] [place] [address] Care Team Providers Care Vending Machine Servicer Name Role Phone Bruna Lazaro RN Unavailable [phone] None, Physician Primary Care Provider Unavailabl e Source Comments [facility] Affiliates and Associated Physician Practices is amultiple site organization consisting of ambulatory clinics and hospital sitesin [place], [place], [place] and [place]. This disclosure is being madepursuant to the Care Everywhere program and may not contain all information available regarding this patient. Last updated 18.[facility] Encounters Date Type Department Care Team Description 04/05/2024 12:15 PM LEASE EXAMINER Clinical Support [facility] [address] [place] [address], [address] [place] [address] Morbid obesity (HCC) 03/11/2024 Refill [facility] [address] [place] [address], [address] [address] Yoel Juarez MD MEDICATION REFILL 03/08/2024 1:40 PM LEASE EXAMINER Office Visit [facility] [address] [place] [address], [facility] [address] [place] [address] Yoel Juarez MD Morbid obesity (HCC) (Primary Dx) 03/01/2024 9:45 AM LEASE EXAMINER Video Visit [facility] [address] [place] [address], [address] [address] Morbid obesity (HCC) 02/23/2024 9:00 AM LEASE EXAMINER Video Visit [facility] [address], [address] [...] Comments Blood Pressure 130/82 03/08/2024 1:43 PM LEASE EXAMINER Pulse 78 03/08/2024 1:43 PM LEASE EXAMINER Temperature 36.1 ??C (96.9 ??F) 03/08/2024 1:43 PM CS T Respiratory Rate 21 02/09/2024 9:2 5 AM CDT Oxygen Saturation 98% 03/08/2024 1:43 PM LEASE EXAMINER Inhaled Oxygen Concentration - - Weight 121.9 kg (268 lb 12.8 oz) 2023 12:31 PM LEASE EXAMINER Height 171.5 cm (5' 7.5 ) 04/05/2024 12 :31 PM LEASE EXAMINER Body Mass Index 41.48 04/05/2024 12:31 PM LEASE EXAMINER Functional Status Functional Status Response Date of [...] st Contact Info) Description 05/31/2024 2:40 PM LEASE EXAMINER Office Visit [facility] Services [address] [facility], [address] [place] [address] [place] [address] [facility] [address] [place] [address] Advance Directives * Full Code (Latest Code Status on File) Date Activated Date Inactivated Comments 02/24/2015 8:31 PM 02/26/2015 12:25 PM Care Teams Vending Machine Servicer Relationship Specialty Start Date End Date None, Physician [address] [place] [address] PCP - General 02/09/24 Bruna Lazaro, RADHA Grinder Hand 02/24/15
--- OUTSIDE RECORDS SUMMARY | 2024-05-16 12:53 | XMS_ITS | Clinical Summary ---
Author Organization [facility] Address [address] [place] [address] Phone Care Team Providers Care Trainmaster Name Role Phone Citlali Ang APRN, EDUCATION AND TRAINING MANAGER Primary Care Provide r Chidi Andrew MD Unavailable [phone] Allergies No known active allergies Medications Etonogestrel-Eth [...] Description 01/03/2025 8:40 AM CDT [facility] [address] [place] [address] Chidi Andrew MD [address] [place] [address] Discharge Disposition: Discharged to home or Selfcare [...] patient's age to complete this topic [place] [address] [place] [address] Care Teams Trainmaster Relationship Specialty Start Date End Date Citlali Ang, DRY PRESS OPERATOR, EDUCATION AND TRAINING MANAGER PCP - General Advanced Practice Nurse 12/31/18 Chidi Andrew MD [address] [place] [address] Consulting Physician Medical Oncology 11/22/23
--- OUTSIDE RECORDS SUMMARY | 2024-05-16 12:53 | XMS_ITS | Encounter Summary ---
Author Organization [facility] Address [address] [facility] [place] [address] Phone Care Team Providers Care Radiology Orderly Name Role Phone Ang Citlaliangel Sharpe APRN, TREE MARKER Primary Care Provide r Chidi Andrew MD Unavailable [phone] Encounter Details Date Type Department Care Team (Late st Contact Info) Description 01/13/2022 Telephone [facility] Services [address] [place] [address] Jerilyn Valderrama [place] Social History Tobacco Use Types Packs/Day Years [...] Description 01/03/2025 8:40 AM CDT [facility] [address] [place] [address] Chidi Andrew MD [address] [place] [address] Discharge Disposition: Discharged to home or Selfcare documented as of this encounter Visit Diagnoses Not on filedocumented in this encounter Care Teams Radiology Orderly Relationship Specialty Start Date End Date Citlali Ang APRN, SELIN PCP - General Advanced Practice Nurse 12/31/18 Chidi Andrew MD [address] [place] [address] Consulting Physician Medical Oncology 11/22/23 documented as of this encounter
[2024-05-16] MEDS: KETOROLAC 30 MG/ML VIAL (*BKC) IV PUSH (13:59)
[2024-05-16 14:04] VITALS: BP 133/84; PULSE 64; RESP 16; O2SAT 100
[2024-05-16 14:28] VITALS: BP 106/93; PULSE 98; RESP 16; O2SAT 96
== END 2024-05-16 14:29 | disposition home or self-care (01) ==
PROVIDERS: Physician Assistant; Emergency Provider Emergency Medicine
DX: G43.909 Migraine, unspecified, not intractable, without status migrainosus (principal); F41.9 Anxiety disorder, unspecified; Z98.84 Bariatric surgery status; Z90.49 Acquired absence of other specified parts of digestive tract; Z79.899 Other long term (current) drug therapy
CPT/HCPCS: 36415; 70450; 80053; 85025; 96361; 96374; 96375; 99284; A9270; J1200; J1885; J2765; J7030

== ENCOUNTER 2025-02-20 10:20 | Outpatient (CLI) | payer OTHER, SELFPAY ==
--- NOTE | ~2025-02-20 | MM_ITS ---
EXAMINATION: MM screening dre BI w saulo HISTORY: Screening TECHNIQUE: Craniocaudal and mediolateral oblique 3-D tomosynthesis images were obtained and synthetic 2-D images were generated. CAD analysis was submitted and interpreted. COMPARISON: Comparison to multiple prior studies sequentially, with oldest reviewed study dated , 01/29/2020 BREAST PARENCHYMAL COMPOSITION: There are scattered areas of fibroglandular density. FINDINGS: There is no evidence of suspicious mass, calcification, or architectural distortion to suggest malignancy in either breast. IMPRESSION: 1. No mammographic evidence of malignancy. 2. Recommend routine screening mammography in one year. BI-RADS Category 1: Negative Reviewed, dictated and finalized at location B. [employer]
--- OUTSIDE RECORDS SUMMARY | 2025-02-20 18:36 | XMS_ITS | Encounter Summary ---
Author Organization [facility] Address [address] [facility] [place] [address] Care Team Providers Care Door Person Name Role Phone Bruna Lazaro RN Unavailable None, Physician Primary Care Provider Unavailabl e Encounter Details Date Type Department Care Team (Late st Contact Info) Description 01/08/2025 Results Follow-Up [facility] [address] [address] April Edwards, PROPERTY ACCOUNTANT-PUBLIC HOUSING INTERVIEWER [address] [address] Social History Tobacco Use Types Packs/Day Years Used Date Smoking Tobacco: Never Smokeless Tobacco: Never Alcohol Use Standard Drinks/Week Comments Yes 2 (1 standard drink = 0.6 oz pur e alcohol) occasional AUDIT-C Answer Date Recorded Q1: How often do you have a drink containing alc ohol? 2-3 times a week 08/07/2024 Q2: How many drinks containi ng alcohol do you have on a typical day when you are drinking? 1 or 2 08/07/2024 Q3: How often do you have si x or more drinks on one occasion? Never 08/07/2024 Overall Financial Resource Strain (CARDIA) Answe r Date Recorded How hard is it for you to pa y for the very basics like food, housing, medical care, and heating? Not hard at all 08/07/2024 [place] [employer] - Occupational Stress Questionnaire Answer Date Recorded Do you feel stress - tense, restless, nervous, or anxious, or unable to sleep at night because your mind is troubled all the time - these days? Not at all 08/07/2024 Hunger Vital Sign Answer Date Recorded Within the past 12 months, y ou worried that your food would run out before you got the money to buy more. Never true 08/08/19 25 Within the past 12 months, t he food you bought just didn't last and you didn't have money to get more. Never true 08/07/2024 PRAPARE - Transportation Answer Date Re corded In the past 12 months, has l ack of transportation kept you from medical appointments or from getting medications? No 07/17 In the past 12 months, has l ack of transportation kept you from meetings, work, or from getting things needed for daily living? No 08/07/2024 Housing Stability Vital Sign Answer Glenn e Recorded In the last 12 months, was t here a time when you were not able to pay the mortgage or rent on time? No 08/07/2024 In the past 12 months, how m any times have you moved where you were living? 1 08/07/2024 At any time in the past 12 m [facility], were you homeless or living in a jail (including now)? No 08/07/2024 Comments No Sex and Gender Information Value Date Recorded Sex Assigned at Female 01/15/2024 3:17 PM CDT Legal Sex Female 1:56 PM CDT Gender Identity Not on file Sexual Orientation Not on file documented as of this encounter Functional Status * Is person deaf or have serious hearing difficulty? Answer Date of Assessment Author No 08/08/2024 7:57 AM BEATRICET Danielle Ng RN * Is person blind or have serious difficulty seeing? Answer Date of Assessment Author No 08/08/2024 7:57 AM BEATRICET Danielle Ng RN * Does person have serious difficulty walking/climbing stairs? Answer Date of Assessment Author No 08/08/2024 7:57 AM Danielle Mares RN * Does person have difficulty dressing/bathing? Answer Date of Assessment Author No 08/08/2024 7:57 AM Danielle Mares RN * Does person have difficulty doing errands alone? Answer Date of Assessment Author No 08/08/2024 7:57 AM Danielle Mares RN documented as of this encounter Mental Status * Does person have difficulty concentrating/remembering/making decisions? Answer Entry Date Author No 08/08/2024 7:57 AM Danielle Mares RN documented in this encounter Plan of Treatment Upcoming Encounters Date Type Department Care Team (Late st Contact Info) Description 04/03/2025 8:00 AM TRANSCRIPT CLERK Office Visit [facility] Services [address] [place] [address], [address] [phone] April Edwards, PROPERTY ACCOUNTANT-PUBLIC HOUSING INTERVIEWER [address] [place] [id number] 08/07/2025 10:00 AM CDT Office Visit [facility] Services [address] [place] [address], [address] [address] April Edwards PROPERTY ACCOUNTANT-PUBLIC HOUSING INTERVIEWER [address] [place] [address] documented as of this encounter Visit Diagnoses Not on filedocumented in this encounter Care Teams Door Person Relationship Specialty Start Date End Date None, Physician [address] [place] [address] PCP - General 02/09/24 Bruna Lazaro, RADHA Desktop Support Specialist 02/24/15 documented as of this encounter
--- OUTSIDE RECORDS SUMMARY | 2025-02-20 18:36 | XMS_ITS | Clinical Summary ---
Author Organization [facility] [address] Address [address] [place] [phone] Care Team Providers Care Chemic Mangler Name Role Phone Merrill Moyer MD Unavailable Chidi Andrew MD Unavailable [phone] Allergies No known active allergies Medications albuterol [...] Date Resolved Date Cholelithiasis 09/01/2014 01/05/2023 Immunizations Immunization Administration Dates Next Due Influenza, Quadrivalent, Spl [...] on file Legal Sex Female 3:41 AM LICENSED OPTICAL DISPENSER Gender Identity Not on file Sexual Orientation Not on file Occupation Industry Job Start Date Job End Date [employer], [employer] Not on file Not on file Not on file Last Filed Vital Signs Vital Sign Reading Time Taken Comments Blood Pressure 113/76 01/05/2023 12:11 PM CDT Pulse 83 01/05/2023 12:11 PM CDT Temperature 36.7 C (98 F) 01/05/2023 12:11 PM CDT Respiratory Rate 14 03/15/2022 10:01 AM LICENSED OPTICAL DISPENSER Oxygen Saturation 98% 01/05/2023 12:11 PM CDT Inhaled Oxygen Concentration - - Weight 119.7 kg (264 lb) 01/05/2023 12:11 PM CDT Height 174 cm (5' 8.5) 01/05/2023 12:11 PM CDT Body Mass Index 39.55 01/05/2023 12:11 PM CDT Plan of Treatment Health Maintenance Due Date Last Done Comments Breast Cancer Screening-Mammogram 1984 Hepatitis C Screening 1984 Hepatitis B Screening 2002 HPV Vaccines (1 - 3-dose SCD M series) 06/18/2011 Depression Screening 01/06/2024 01/05/2023 Regular Well Visit/Exam 18-64 01/06/2024, 01/05/2023 Covid-19 Vaccine (3 - 2024-2 6 season) 2024 02/14/2021, 08/11/2020 Influenza Vaccine (#1) 2024 02/14/2022 DTaP/Tdap/Td Vaccine (2 - Td or Tdap) 04/17/2025 04/17/2015 Cervical Cancer Screening 04/17/2027 04/17/2022 Pneumococcal vaccine <65 Aged Out No longer eligible based on patient's age to complete this topic Insurance [facility] [employer] Care Teams Chemic Mangler Relationship Specialty Start Date End Date Merrill Moyer MD [address] [address] Referring Physician Obstetrics and Gynecology 01/05/23 Chidi Andrew MD [address] [address] Referring Physician Hematology and Oncology 01/05/23
--- OUTSIDE RECORDS SUMMARY | 2025-02-20 18:36 | XMS_ITS | Encounter Summary ---
Author Organization [facility] Address [address] [place] [address] Phone Care Team Providers Care Tractor Sweeper Operator Name Role Phone Citlali Ang APRN, CLERICAL SUPPORT Primary Care Provide r Chidi Andrew MD Unavailable [phone] Encounter Details Date Type Department Care Team (Late st Contact Info) Description 01/13/2022 Telephone [facility] Oncology Services [address] [place] [address] Jerilyn Valderrama [place] Social History Tobacco Use Types Packs/Day Years [...] Care Team (Late st Contact Info) Description 01/05/2026 9:40 AM CDT Office Visit [facility] Oncology Services [address] [place] [address] Chidi Andrew MD [address] [place] [address] Discharge Disposition: Discharged to home or Selfcare documented as of this encounter Visit Diagnoses Not on filedocumented in this encounter Care Teams Tractor Sweeper Operator Relationship Specialty Start Date End Date Citlali Ang, ANALYSIS ANALYST, CLERICAL SUPPORT PCP - General Advanced Practice Nurse 12/31/18 Chidi Andrew MD [address] [place] [address] Consulting Physician Medical Oncology 11/22/23 documented as of this encounter
--- OUTSIDE RECORDS SUMMARY | 2025-02-20 18:36 | XMS_ITS | Clinical Summary ---
Author Organization [facility] [place] Address [address] [facility] [place] [address] Care Team Providers Care Public Health Microbiologist Name Role Phone Park Montalvo MD Primary Care Provider [phone] Allergies No known active allergies Medications NUVARING 0.12-0.015 mg/24 hr Ring 7 Active valACYclovir (VALTREX) 500 mg tablet 9 Active triamcinolone acetonide (KENALOG) 0.1 % CreamIndications: Dermatitis due to plants, including poison angela, sumac, and oak Apply to affected area 2 times daily. 30 Gram 2 Active albuterol sulfate HFA 90 mcg/actuation aerosol inhalerIndication s:Exercise induced bronchospasm 2 puffs 30 min prior to exercise 6.7 Gram 2 4 Active busPIRone (BUSPAR) 5 mg tablet Take 1 Tablet (5 mg) by mouth daily. 90 Tablet 1 4 Active cyanocobalamin (VITAMIN B-12) 1,000 mcg Tablet, Sublingual Take 1,000 mcg by mouth daily. Active omeprazole (PriLOSEC) 20 mg Capsule, Delayed Release(E.C.) Take 20 mg by mouth daily. 5 Active multivitamin (DAILY-ANGELITO) tablet Take 1 Tablet by mouth daily. Active CALCIUM CARBONATE ORAL Take by mouth. Active Active Problems Problem Noted Date Diagnosed [...] Encounters Date Type Department Care Team Description 02/04/2025 External Device Data ST[facility] ABSTRACTION Provider, Abstract from Last 3 Months Immunizations Immunization Administration Dates Next Due (ADACEL/BOOSTRIX)(10 YR UP) TDAP VACCINE, 0.5ML, IM 04/17/2015 (PFIZER)(12 YR UP) COVID-19 VACCINE - EMERGENCY USE AUTHORIZATION, MRNA, [id number](PF) 30 MCG/0.3 ML IM SUSP 02/14/2021,08/11/2020 Family [...] on file Legal Sex Female 9:24 AM COBOL DEVELOPER Gender Identity Not on file Sexual Orientation Not on file Last Filed Vital Signs Vital Sign Reading Time Taken Comments Blood Pressure 114/82 12/08/2023 1:02 PM CDT Pulse 71 12/08/2023 1:02 PM CDT Temperature 36.9 C (98.5 F) 12/08/2023 1:02 PM CDT Respiratory Rate 18 12/08/2023 1:02 PM CDT Oxygen Saturation 98% 12/08/2023 1:02 PM CDT Inhaled Oxygen Concentration - - Weight 120.7 kg (266 lb) 12/08/2023 1:02 PM CDT Height 175.3 cm (5' 9) 12/08/2023 1:02 PM CDT Body Mass Index 39.28 12/08/2023 1:02 PM CDT Plan of Treatment Health Maintenance Due Date Last Done Comments Pre-Diabetes and Diabetes Screening 1984 HEPATITIS B VACCINES (1 of 3 - 19+ 3-dose series) 06/18/2003 HPV/Cotest (21-29) 2005 HPV VACCINES (1 - 3-dose SCDM series) 06/18/2011 HPV/Cotest (30-65) 2014 Preventative Visit- Commercial 04/17/2024 01/05/2023 CERVICAL CANCER SCREENING 06/15/2024 PAP SMEAR 06/15/2024 06/15/2021 (Prev iously completed), 12/16/2017 (Previously completed), 01/15/2017 (Previously completed) BREAST CANCER SCREENING 2024 INFLUENZA VACCINE (#1) 2024 02/14/2022 COVID-19 Vaccine (2024- season) 2024, 08/11/2020 DTAP/TDAP/TD VACCINES (2 - T d or Tdap) 04/17/2025 04/17/2015 Insurance ALLEGIANCE OPEN ACCESS ALLEGIANCE OPEN ACCESS * Guarantor: [employer] Account Type Relation to Patient Date of Phone Billing Address Corporate Employer ATTN: JANELLE PAUL [address] [address] Care Teams Public Health Microbiologist Relationship Specialty Start Date End Date Park Montalvo MD [address] [place] [phone] PCP - General Internal Medicine 12/08/23
--- OUTSIDE RECORDS SUMMARY | 2025-02-20 18:36 | XMS_ITS | Clinical Summary ---
Author Organization [facility] [employer] Address [address] [place] [address] Care Team Providers Care Architect Manager Name Role Phone Bruna Lazaro RN Unavailable [phone] None, Physician Primary Care Provider Unavailabl e Source Comments [facility] [employer],non-owned Affiliates and Associated Physician Practices is amultiple site organization consisting of ambulatory clinics and hospital sitesin [place], [place], [place] and [place]. This disclosure is being madepursuant to the Care Everywhere program and may not contain all information available regarding this patient. Last updated 18.[facility] [employer] Allergies No known active allergies Medications * Be aware that medications may not be up to date on this document. Alwaysverify current medications with the patient. busPIRone (Buspar) 5 MG tablet Take 1 (one) tablet by mouth once daily 3 Active albuterol HFA (Proventil; Ventolin; Proair) 108 (90 Base) MCG/ACT inhaler Inhale 1 (one) puff by mouth every 6 hours as needed for Shortness of Breath 4 Active vitamin B-12 (Cyanocobalamin ) 1000 MCG tablet Take 1 (one) tablet by mouth once daily Active NuvaRing 0.12-0.015 MG/24HR vaginal ring Insert 1 (one) device into the vagina every 28 days 5 Active ondansetron, disintegrating, (Zofran ODT) 4 MG tablet Take 1 (one) tablet by mouth every 6 hours as needed for Nausea/Vomiti ng Allow tablet to dissolve on the tongue 30 tablet 08/08/2024 9:55 AM CDT 5 Active omeprazole (PriLOSEC) 20 MG capsule Take 1 (one) capsule by mouth daily before breakfast 30 capsule 2 5 Active omeprazole (PriLOSEC) 20 MG capsule TAKE 1 CAPSULE BY MOUTH DAILY. START AFTER SURGERY 30 capsule 5 5 02/06/20 25 Discontinu ed(Reorder ) Active Problems Problem Noted Date Diagnosed Date S/P gastric bypass 08/07/2024 Morbid obesity 09/01/2014 DJD (degenerative joint disease) 09/01/2014 Cholelithiasis 09/01/2014 Encounters Date Type Department Care Team Description 02/05/2025 Refill [facility] [address] [place] [address], [address] [address] April Edwards APRN-CNP MEDICATION REFILL 01/08/2025 Results Follow-Up [facility] [address] [place] [address], [address] [address] April Edwards APRN-CNP 01/01/2025 Orders Only [facility] [address] [place] [address], [address] [address] April Edwards APRN-CNP from Last 3 Months Social History Tobacco Use Types Packs/Day Years Used Date Smoking Tobacco: Never Smokeless Tobacco: Never Tobacco Cessation:Counseling Given: Not Answered Alcohol Use Standard Drinks/Week Comments Yes 2 [...] and heating? Not hard at all 08/07/2024 [facility] Answer Date Recorded [...] any time in the past 12 m [facility], were you homeless or living in a intermediate (including now)? No 08/07/2024 Comments No Sex and Gender Information Value Date Recorded Sex Assigned at Female 01/15/2024 3:17 PM CDT Legal Sex Female 1:56 PM CDT Gender Identity Not on file Sexual Orientation Not on file Last Filed Vital Signs Vital Sign Reading Time Taken Comments Blood Pressure 120/82 11/18/2024 11:59 AM CDT Pulse 100 11/18/2024 11:59 AM CDT Temperature 36.2 C (97.1 F) 11/18/2024 11:59 AM CDT Respiratory Rate 18 08/08/2024 4:08 PM CDT Oxygen Saturation 98% 11/18/2024 11: 59 AM CDT Inhaled Oxygen Concentration - - Weight 113.7 kg (250 lb 9.6 oz) 025 11:59 AM CDT Height 170.2 cm (5' 7) 11/18/2024 11:5 9 AM CDT Body Mass Index 39.25 11/18/2024 11:59 AM CDT Plan of Treatment Upcoming Encounters Date Type Department Care Team (Late st Contact Info) Description 04/03/2025 8:00 AM STRUCTURAL LAYOUT WORKER Office Visit [facility] [address], [address] [place], [place] [id number] April Edwards QUALITY IMPROVEMENT ENGINEER-REFUELING RAMP ATTENDANT [address] [address] [place] [address] 08/07/2025 10:00 AM CDT Office Visit [facility] [address], [address] [place] [address] April Edwards, QUALITY IMPROVEMENT ENGINEER-REFUELING RAMP ATTENDANT [address] [address]NALI WRIGHT [address] [place] [address] Health Maintenance Due Date Last Done Comments LIPID TESTING 1984 MAMMOGRAM 1984 HIV SCREENING 06/18/1999 HEPATITIS C SCREENING 06/13/2002 DTAP/TDAP/TD VACCINES (1 - Tdap) 06/18/2003 HEPATITIS B VACCINE (1 of 3 - 19+ 3-dose series) 06/18/2003 PAP SMEAR 2005 HPV VACCINE (1 - 3-dose SCDM series) 06/18/2011 DEPRESSION SCREENING 04/17/2024 COVID-19 VACCINE ( season) 2024 02/14/2021, 08/11/2020 INFLUENZA VACCINE (#1) 2024 02/14/2022 SCREENING FOR DIABETES 01/02/2028 , 08/08/2024, 08/08/2024, Additional history exists ZOSTER VACCINE (1 of 2) 2034 HIB VACCINE Aged Out No longer eligi ble based on patient's age to complete this topic MENINGOCOCCAL (Group B) VACCINE SHARED DECISION-MAKING Aged Out No longer eligible based on patient's age to complete this topic MENINGOCOCCAL GROUPS A/C/Y/W VACCINE Aged Out No longer eligible based on patient's age to complete this topic PNEUMOCOCCAL VACCINE Aged Out No long er eligible based on patient's age to complete this topic Procedures Procedure Name Priority Date/Time Associated Diagnosis Comments COPPER BLOOD 01/01/2025 3:51 PM CDT ZINC BLOOD 01/01/2025 3:51 PM CDT VITAMIN E 01/01/2025 3:51 PM CDT VITAMIN A 01/01/2025 3:51 PM CDT VITAMIN B1 01/01/2025 3:51 PM CDT VITAMIN D 25-HYDROXY 01/01/2025 3:51 PM CDT PTH INTACT 01/01/2025 3:51 PM CDT VITAMIN B12 01/01/2025 3:51 PM CDT FOLATE 01/01/2025 3:51 PM CDT PREALBUMIN 01/01/2025 3:51 PM CDT VITAMIN K1 01/01/2025 3:51 PM CDT COMPREHENSIVE METABOLIC PANEL 01/01/2025 3:51 PM CDT MAGNESIUM BLOOD 01/01/2025 3:51 PM CDT from Last 3 Months Results * VITAMIN K1 (01/01/2025 3:51 PM CDT) Vitamin K 231 130 - 1500 pg/mL [facility] Comment: This test was developed and its analytical performance characteristics have been determined by [employer] [place], [place]. It has not been cleared or approved by the U.S. Food and Drug Administration. This assay has been validated pursuant to the CLIA regulations and is used for clinical purposes. Test Performed at: [employer]/[address] DARIEN MUSE MD,PHD 01/01/2025 3:51 PM CDT 01/01/2025 3:53 PM CDT April Edwards [facility] - CHEMISTRY BEAStephani KENNEDYLEONOR Final Result Performing Organization Address [facility] Co de Phone Number [facility] [address] [place] [address] * ZINC BLOOD (01/01/2025 3:51 PM CDT) Zinc 63 60 - 130 mcg/dL [facility] Comment: (Note) This test was developed and its analytical performance characteristics have been determined by [employer]. It has not been cleared or approved by the FDA. This assay has been validated pursuant to the CLIA regulations and is used for clinical purposes. [facility] [employer] [address] [place] [address],[address] [place] [address] Loly Radford MD, PhD Test Performed at: [facility] [address] [place] [address] [place] [phone] LOLY RADFORD MD,PHD 01/01/2025 3:51 PM CDT 01/01/2025 3:53 PM CDT April Edwards [facility] - CHEMISTRY BISI ANDREW Final Result Performing Organization Address [facility] Co de Phone Number [facility] [address] [place] [address] * VITAMIN A (01/01/2025 3:51 PM CDT) Vitamin A 73 38 - 98 mcg/dL [facility] Comment: (Note) Clin Chem Vol. 34.No.8. [id number]. 1998 Vitamin supplementation within 24 hours prior to blood draw may affect the accuracy of results. This test was developed and its analytical performance characteristics have been determined by [employer]. It has not been cleared or approved by the FDA. This assay has been validated pursuant to the CLIA regulations and is used for clinical purposes. [facility] [employer] [address] [place] [address] [address] [place] [address] Loly Radford MD, PhD Test Performed at: [facility] [address] [place] [address] [place] [phone] LOLY RADFORD MD,PHD 01/01/2025 3:51 PM CDT 01/01/2025 3:53 PM CDT April Edwards APRNSEL[facility] LAB - CHEMISTRY BISI ANDREW Final Result Performing Organization Address [facility] Co de Phone Number [facility] [address] [place] [address] * VITAMIN E (01/01/2025 3:51 PM CDT) Pathologist [facility] Alpha-Tocopherol 9.1 5.7 - 19.9 mg/L [facility] Comment: Levels of alpha-tocopherol <5 mg/L are consistent with Vitamin E deficiency in adults. Beta-Gamma Tocopherol 1.0 <4.4 mg/L [facility] Comment: (Note) Vitamin supplementation within 24 hours prior to blood draw may affect the accuracy of results. This test was developed and its analytical performance characteristics have been determined by [employer]. It has not been cleared or approved by the FDA. This assay has been validated pursuant to the CLIA regulations and is used for clinical purposes. [employer] [address] [place] [address],[address] [place] [address] Loly Radford MD, PhD Test Performed at: [facility] [address] [place] [address] [place] [phone] LOLY RADFORD MD,PHD 01/01/2025 3:51 PM CDT 01/01/2025 3:53 PM CDT April Edwards APRN[facility] LAB - CHEMISTRY BISI ANDREW Final Result Performing Organization Address [facility] Co de Phone Number [facility] [address] [place] [address] * VITAMIN B1 (01/01/2025 3:51 PM CDT) Pathologist [facility] Vitamin B1 Whole Blood 122 78 - 185 nmol/L [facility] Comment: (Note) Vitamin supplementation within 24 hours prior to blood draw may affect the accuracy of the results. This test was developed and its analytical performance characteristics have been determined by [employer]. It has not been cleared or approved by FDA. This assay has been validated pursuant to the CLIA regulations and is used for clinical purposes. [facility] [employer] [facility] [address] [address],[address] [facility] [address] Loly Radford MD, PhD Test Performed at: [facility] [address] [address] [address] [place] [address] LOLY RADFORD MD,PHD 01/01/2025 3:51 PM CDT 01/01/2025 3:53 PM CDT April Edwards [facility] - CHEMISTRY ORDE KAMRAN Final Result Performing Organization Address [facility] de Phone Number [address] [address] * PTH INTACT (01/01/2025 3:51 PM CDT) PTH Intact 41 16 - 77 pg/mL [facility] Comment: Interpretive Guide Intact PTH Calcium ------- Normal Parathyroid Normal Normal Hypoparathyroidism Low or Low Normal Low Hyperparathyroidism Primary Normal or High High Secondary High Normal or Low Tertiary High High Non-Parathyroid Hypercalcemia Low or Low Normal High Test Performed at: [employer] [facility] [address] [place] [address] LIVAN STAHL MD 01/01/2025 3:51 PM CDT 01/01/2025 3:53 PM CDT April Edwards [facility] - CHEMISTRY ORDStephani ANDREW Final Result Performing Organization Address [facility] Co de Phone Number [facility] [id number] [place] [address] * COPPER BLOOD (01/01/2025 3:51 PM CDT) Pathologist [facility] Copper 167 70 - 175 mcg/dL [facility] Comment: (Note) This test was developed and its analytical performance characteristics have been determined by [employer]. It has not been cleared or approved by the FDA. This assay has been validated pursuant to the CLIA regulations and is used for clinical purposes. [facility] [address] [address],[address] [facility] [address] Loly Radford MD, PhD Test Performed at: [facility] [address] [facility] [address] [place] [address] LOLY RADFORD MD,PHD 01/01/2025 3:51 PM CDT 01/01/2025 3:53 PM CDT April Edwards APRNSEL[facility] LAB - CHEMISTRY ORDE KAMRAN Final Result [id number] [place] [address] * VITAMIN D 25-HYDROXY (01/01/2025 3:51 PM CDT) Pathologist [facility] Vitamin D, 25 Hydroxy 31 30 - 100 ng/mL [facility] Comment: Vitamin D Status 25-OH Vitamin D: Deficiency: <20 ng/mL Insufficiency: 20 - 29 ng/mL Optimal: > or = 30 ng/mL For 25-OH Vitamin D testing on patients on D2-supplementation and patients for whom quantitation of D2 and D3 fractions is required, the QuestAssureD(TM) 25-OH VIT D, (D2,D3), LC/MS/MS is recommended: order code 89066 (patients >2yrs). See Note 1 Note 1 For additional information, please refer to http://education.Thryve.[employer]/faq/UZM985 (This link is being provided for informational/ educational purposes only.) Test Performed at: [facility] [address] [place] [address] LIVAN STAHL MD 01/01/2025 3:51 PM CDT 01/01/2025 3:53 PM CDT April A Jerry QUALITY IMPROVEMENT ENGINEER-REFUELING RAMP ATTENDANT LAB - CHEMISTRY ORDE RABLEONOR Final Result Performing Organization Address City/[facility]/ZIP Co de Phone Number [address] [address] * COMPREHENSIVE METABOLIC PANEL (01/01/2025 3:51 PM CDT) Glucose 84 65 - 99 mg/dL [facility] Comment: Fasting reference interval BUN 14 7 - 25 mg/dL [facility] Creatinine 0.72 0.50 - 0.99 mg/dL [facility] eGFR by Cystatin C 108 > OR = 60 mL/min/1. 73m2 [facility] BUN/Creatinine Ratio SEE NOTE: 6 - 22 (calc) [facility] Comment: Not Reported: BUN and Creatinine are within reference range. Sodium 139 135 - 146 mmol/L [facility] Potassium 4.3 3.5 - 5.3 mmol/L [facility] Chloride 106 98 - 110 mmol/L [facility] CO2 26 20 - 32 mmol/L [facility] Calcium 9.2 8.6 - 10.2 mg/dL [facility] Protein Total 6.7 6.1 - 8.1 g/dL [facility] Albumin 4.3 3.6 - 5.1 g/dL [facility] Globulin Total 2.4 1.9 - 3.7 g/dL (calc) [facility] Albumin/Globulin Ratio 1.8 1.0 - 2.5 (calc) [facility] Bilirubin Total 0.8 0.2 - 1.2 mg/dL [facility] Alkaline Phosphatase 69 31 - 125 U/L [facility] AST 21 10 - 30 U/L [facility] ALT 24 6 - 29 U/L [facility] Comment: Test Performed at: [employer] [address] LIVAN STAHL MD 01/01/2025 3:51 PM CDT 01/01/2025 3:53 PM CDT April Edwards APRN-REFUELING RAMP ATTENDANT LAB - CHEMISTRY ORDE RABLEONOR Final Result Performing Organization Address City/[facility]/ZIP Co de Phone Number [address] [address] * PREALBUMIN (01/01/2025 3:51 PM CDT) Pathologist [facility] Prealbumin 25 17 - 34 mg/dL [facility] Comment: Test Performed at: [employer] [place] [address] [place] [address] LIVAN STAHL MD 01/01/2025 3:51 PM CDT 01/01/2025 3:53 PM CDT April RANKIN LAB - CHEMISTRY ORDE KAMRAN Final Result Performing Organization Address [facility] Co de Phone Number [address] [address] * MAGNESIUM BLOOD (01/01/2025 3:51 PM CDT) [facility] Magnesium 2.1 1.5 - 2.5 mg/dL [facility] Comment: Test Performed at: [facility] [employer] [address] LIVAN STAHL MD 01/01/2025 3:51 PM CDT 01/01/2025 3:53 PM CDT April R[facility] LAB - CHEMISTRY BISI NADREW Final Result Performing Organization Address [facility] Co de Phone Number [address] [address] * FOLATE (01/01/2025 3:51 PM CDT) [facility] Folate >24.0 ng/mL [facility] Comment: Reference Range Low: <3.4 Borderline: 3.4-5.4 Normal: >5.4 Test Performed at: [employer] [facility] [place] [address] LIVAN STAHL MD 01/01/2025 3:51 PM CDT 01/01/2025 3:53 PM CDT April RANK[facility] LAB - CHEMISTRY BISI ANDREW Final Result Performing Organization Address [facility] Co de Phone Number [address] [address] * VITAMIN B12 (01/01/2025 3:51 PM CDT) [facility] Vitamin B12 869 200 - 1100 pg/mL [facility] Comment: Test Performed at: [employer] [address] [address] LIVAN STAHL MD 01/01/2025 3:51 PM CDT 01/01/2025 3:53 PM CDT April Mateo [employer] QUALITY IMPROVEMENT ENGINEER-REFUELING RAMP ATTENDANT LAB - CHEMISTRY BISI ANDREW Final Result Performing Organization Address City/State/[facility] Co de Phone Number [facility] [address] [place] [address] from Last 3 Months Insurance [facility] Advance Directives * Full Code (Latest Code Status on File) Date Activated Date Inactivated Comments 08/07/2024 1:26 PM 08/08/2024 6:23 PM * Full Code Date Activated Date Inactivated Comments 02/24/2015 8:31 PM 02/26/2015 12:25 PM Care Teams Architect Manager Relationship Specialty Start Date End Date None, Physician [address] [place] [address] PCP - General 02/09/24 Bruna Lazaro, RADHA Rotating Field Assembler 02/24/15
--- OUTSIDE RECORDS SUMMARY | 2025-02-20 18:36 | XMS_ITS | Clinical Summary ---
Author Organization [facility] Address [address] [place] [address] Phone Care Team Providers Care Oil Pipeline Operator Name Role Phone Citlali Ang APRN, CNP Primary Care Provide r Chidi Andrew MD Unavailable [phone] Allergies No known active allergies Medications Etonogestrel-Eth inyl Estradiol 0.12-0.015 MG/24HR RING 03/07/2017 Active busPIRone (BUSPAR) 5 MG Tablet Take 10 mg by mouth. 03/09/2020 Active valACYclovir (VALTREX) 500 MG Tablet 01/06/2019 Active omeprazole (PriLOSEC) 20 MG CAPSULE DELAYED RELEASE 20 mg daily. 07/25/2024 Active cyanocobalamin (VITAMIN B12) 1000 MCG SL Tablet Take 1 Tablet by mouth daily. Active multi-vitamins (Daily Vites) Tablet Take 1 Tablet by mouth daily. 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 Encounters Date Type Department Care Team Description 01/03/2025 8:40 AM CDT [facility] [address] [place] [address] Chidi Andrew MD History of gastric bypass (Primary Dx); Iron deficiency anemia due to sideropenic dysphagia; B12 deficiency Discharge Disposition: Discharged to home or Selfcare 01/03/2025 Travel 01/01/2025 Travel from Last 3 Months Family History Medical History Relation Name Comments [...] Sign Reading Time Taken Comments Blood Pressure 116/74 01/03/2025 8:52 AM CDT Pulse 80 01/03/2025 8:52 AM CDT Temperature 36.6 C (97.8 F) 01/03/2025 8:52 AM CDT Respiratory Rate 18 01/03/2025 8:52 AM CDT Oxygen Saturation 99% 01/23/2024 9:10 AM CDT Inhaled Oxygen Concentration - - Weight 110 kg (242 lb 9.6 oz) 01/03/2025 8:52 AM CDT Height 177.8 cm (5' 10) 12/27/2023 1:15 PM CDT Body Mass Index 34.81 12/27/2023 1:15 PM CDT Plan of Treatment Upcoming Encounters Date Type Department Care Team (Late st Contact Info) Description 01/05/2026 9:40 AM CDT [facility] [address] [place] [address] Chidi Andrew MD [address] [place] [address] Discharge Disposition: Discharged to home or Selfcare Health Maintenance Due Date Last Done Comments Hepatitis C Virus (HCV) Screening 1984 Mammogram 1984 Hepatitis B Immunization (1 of 3 - 19+ 3-dose series) 06/18/2003 Pap Smear 2005 Human Papillomavirus (HPV) Immunization (1 - 3-dose SCDM series) 06/18/2011 Cervical Cancer Screening (CCS) 2014 HPV/Cotest 2014 Discussion re Starting/Frequency of Mammograms 2024 Influenza Immunization (#1) 12/16/[address] 04/2023, 02/05/2023, 02/14/2022 SARS-COV-2 Immunization ( season) 2024 02/14/2021, 08/11/2020 Respiratory Syncytial Virus (RSV) Immunization [...] Procedure Name Priority Date/Time Associated Diagnosis Comments FERRITIN Routine 01/01/2025 12:00 AM CDT Iron deficiency anemia due to sideropenic dysphagia IRON,TRANSFERN,CALC.TI BC,%SAT Routine 01/01/2025 12:00 AM CDT Iron deficiency anemia due to sideropenic dysphagia COMPLETE BLOOD COUNT (CBC) WITH DIFF Routine 01/01/2025 12:00 AM CDT Iron deficiency anemia due to sideropenic dysphagia from Last 3 Months Results * IRON,TRANSFERN,CALC.TIBC,%SAT (01/01/2025 12:00 AM CDT) Blood Chidi Andrew MD CHEMISTRY ORDERABLES Fin al Result SCAN * FERRITIN (01/01/2025 12:00 AM CDT) Blood Chidi Andrew MD CHEMISTRY ORDERABLES Fin al Result SCAN * COMPLETE BLOOD COUNT (CBC) WITH DIFF (01/01/2025 12:00 AM CDT) Blood Chidi Andrew MD HEMATOLOGY ORDERABLES Fi nal Result SCAN from Last 3 Months Insurance [facility] Care Teams Oil Pipeline Operator Relationship Specialty Start Date End Date Citlali Ang, COMMERCIAL MARKETING SPECIALIST, HUMAN RESOURCE PROFESSIONAL PCP - General Advanced Practice Nurse 12/31/18 Chidi Andrew MD [address] [place] [address] Consulting Physician Medical Oncology 11/22/23
== END 2025-02-20 10:21 | disposition home or self-care (01) ==
LOC: ANHFOHIMG 10:22
PROVIDERS: Visit Provider Obstetrics & Gynecology
DX: Z12.31 Encounter for screening mammogram for malignant neoplasm of breast (principal)
CPT/HCPCS: 77063; 77067